=== PATIENT | female | born 1930 | race Caucasian/White ===

== ENCOUNTER → 2017-02-09 | Outpatient (CLI) | payer MEDICARE, BC | LOC: MW.CHPOD 08:00 | PROVIDERS: ATTEND Podiatrist Foot & Ankle Surgery | DX: I73.9 Peripheral vascular disease, unspecified (principal); L90.9 Atrophic disorder of skin, unspecified; M20.5X2 Other deformities of toe(s) (acquired), left foot; L60.3 Nail dystrophy | CPT/HCPCS: 99204 ==

== ENCOUNTER → 2017-03-29 | Outpatient (CLI) | payer MEDICARE, BC | END | disposition home or self-care (01) | LOC: MW.ONC 09:55 | PROVIDERS: ATTEND Internal Medicine Hematology & Oncology | DX: C85.80 Other specified types of non-Hodgkin lymphoma, unspecified site (principal) | CPT/HCPCS: 36415; 80053; 84165; 85025 ==

== ENCOUNTER 2017-11-19 13:03 | Inpatient (IN) | payer MEDICARE, BC ==
[2017-11-19] MEDS ORDERED: Sodium Chloride 0.9% 10 ML Syringe FLUSH PRN (13:26)
[2017-11-19] MEDS ORDERED: Albuterol/Ipratropium 3.0-0.5 MG/3 ML Neb Soln NEB ONE (13:26)
[2017-11-19] MEDS ORDERED: Sodium Chloride 0.9% 2.5 ML Syringe FLUSH PRN (13:26)
--- NOTE | 2017-11-19 13:29 | EDM.PDOC ---
ED HPI GENERAL MEDICAL PROBLEM - General Stated Complaint: AMBULANCE Time Seen by Provider: 11/19/17 13:20 - History of Present Illness INITIAL COMMENTS - FREE TEXT/NARRATIVE: HISTORY AND PHYSICAL: History of present illness: Patient 87-year-old female history of lymphoma who presents with a concern of shortness of breath generalized weakness and slurred speech per daughter she equivocates regarding chest pain and no abdominal pain vomiting or other concerns. Upon arrival her saturations in the high 80s. Review of systems: As per history of present illness and below otherwise all systems reviewed and negative. Past medical history: As per history of present illness and as reviewed below otherwise noncontributory. Surgical history: As per history of present illness and as reviewed below otherwise noncontributory. Social history: No reported history of drug or alcohol abuse. Family history: As per history of present illness and as reviewed below otherwise noncontributory. Physical exam: HEENT: Atraumatic, normocephalic, pupils reactive, negative for conjunctival pallor or scleral icterus, mucous membranes moist, throat clear, neck supple, nontender, trachea midline. Lungs: Coarse breath sounds equal bilaterally, chest nontender. Heart: S1S2, regular, negative for clicks, rubs, or JVD. Abdomen: Soft, nondistended, nontender. Negative for masses or hepatosplenomegaly. Negative for costovertebral tenderness. Pelvis: Stable nontender. Genitourinary: Deferred. Rectal: Deferred. Extremities: Atraumatic, negative for cords or calf pain. Neurovascular unremarkable. Neuro: Awake, alert, follows commands and moves all extremities extremely hard of hearing limited but grossly nonfocal exam Diagnostics: CBC CMP PT/INR troponin UA urine culture sensitivity blood cultures 2 chest x- ray CT brain EKG Therapeutics: IV O2 monitor Impression: #1 dyspnea #2 hypoxemia #3 history of lymphoma #4 history of slurred speech Definitive disposition and diagnosis as appropriate pending reevaluation and review of above. - Related Data Allergies Allergy/AdvReac Type Severity Reaction Status Date / Time cephalexin monohydrate Allergy Hives Verified 11/19/17 14:41 [From Keflex] ciprofloxacin [From Cipro] Allergy Other Verified 11/19/17 14:42 erythromycin base Allergy Hives Verified 11/19/17 14:41 gluten Allergy Stomach Verified 11/19/17 14:41 Ache Penicillins Allergy Hives Verified 11/19/17 14:41 Sulfa (Sulfonamide Allergy Hives Verified 11/19/17 14:41 Antibiotics) contrast Dye Allergy Hives Uncoded 11/19/17 14:41 tape adhesives (USE PAPER Allergy Swelling Uncoded 11/19/17 14:41 TAPE ONLY Home Meds: Home Meds Calcitonin ([place]) [Miacalcin Nasal [place]] 1 inh INH DAILY 12/10/14 [History] Levothyroxine Sodium [Synthroid] 1 tab PO ACBRK 12/10/14 [History] Magnesium Oxide 400 mg PO BID 12/10/14 [History] Multivitamin [Multi Vitamin Daily] 1 tab PO DAILY 12/10/14 [History] Potassium Chloride 40 meq PO DAILY 12/10/14 [History] Triamcinolone Acetonide [Nasacort AQ [place]] 2 spray AYAZ BID 12/10/14 [History] Past Medical History Oncologic (Cancer) History: Reports: Lymphoma, Other (See Below) Other Oncologic History: Blood cancer and some 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 wasn't exactly sure what type of cancer. Social & Family History - Family History Family Medical History: Noncontributory - Tobacco Use Smoking Status *Q: Never Smoker Second Hand Smoke Exposure: No - Caffeine Use Caffeine Use: Reports: None - Alcohol Use Days Per Week of Alcohol Use: 0 Number of Drinks Per Day: 0 Total Drinks Per Week: 0 - Recreational Drug Use Recreational Drug Use: No Drug Use in Last 12 Months: No ED ROS GENERAL - Review of Systems Review Of Systems: ROS reveals no pertinent complaints other than HPI. ED EXAM, GENERAL - Physical Exam Exam: See Below (See dictation) Course - Vital Signs Last Recorded V/S: Last Vital Signs Temp 37.4 C 11/19/17 16:03 Pulse 98 11/19/17 15:31 Resp 12 11/19/17 15:31 BP 77/44 L 11/19/17 15:31 Pulse Ox 98 11/19/17 15:31 - Orders/Labs/Meds Orders: Active Orders 24 hr Category Date Time Status Cardiac Monitoring [RC] . DIRECTED Care 11/19/17 13:23 Active EKG Documentation Completion [RC] STAT Care 11/19/17 13:23 Active Oxygen Therapy, ED [RC] ASDIRECTED Care 11/19/17 13:23 Active Pulse Oximetry [RC] ASDIRECTED Care 11/19/17 13:23 Active RT Aerosol Therapy [RC] ASDIRECTED Care 11/19/17 13:26 Active Chest 1V Frontal [CR] Stat Exams 11/19/17 13:26 Taken Head wo Cont [CT] Stat Exams 11/19/17 13:26 Taken ABG [BLOOD GAS ARTERIAL] [BG] Stat Lab 11/19/17 15:53 Ordered CULTURE BLOOD [BC] Stat Lab 11/19/17 13:37 Received CULTURE BLOOD [BC] Stat Lab 11/19/17 14:02 Received CULTURE URINE [RM] Stat Lab 11/19/17 13:22 Received Levofloxacin/Dextrose 5%-Water [Levaquin in D5W 750 MG/ Med 11/19/17 16:57 Active 150 ML] 750 mg Premix Bag 1 bag IV ONETIME Sodium Chloride 0.9% [Normal Saline] 1,000 ml Med 11/19/17 16:51 Active IV .Bolus Sodium Chloride 0.9% [Normal Saline] 1,000 ml Med 11/19/17 13:30 Active IV STAT Sodium Chloride 0.9% [Saline Flush] Med 11/19/17 13:26 Active 10 ml FLUSH ASDIRECTED PRN Sodium Chloride 0.9% [Saline Flush] Med 11/19/17 13:26 Active 2.5 ml FLUSH ASDIRECTED PRN Blood Culture x2 Reflex Set [OM.PC] Stat Oth 11/19/17 13:25 Ordered Saline Lock Insert [OM.PC] Stat Oth 11/19/17 13:23 Ordered Medication Orders Sodium Chloride (Normal Saline) 1,000 mls @ 125 mls/hr IV STAT [facility] Last Infusion: 11/19/17 14:35 Dose: 999 mls/hr Admin: 11/19/17 13:49 Dose: 125 mls/hr Sodium Chloride (Normal Saline) 1,000 mls @ 999 mls/hr IV .Bolus ONE Stop: 11/19/17 17:51 Levofloxacin/Dextrose 750 mg/ (Premix) 150 mls @ 100 mls/hr IV ONETIME ONE Stop: 11/19/17 18:26 Sodium Chloride (Saline Flush) 10 ml FLUSH ASDIRECTED PRN PRN Reason: Keep Vein Open Last Admin: 11/19/17 13:49 Dose: 10 ml Sodium Chloride (Saline Flush) 2.5 ml FLUSH ASDIRECTED PRN PRN Reason: Keep Vein Open Last Admin: 11/19/17 13:49 Dose: 2.5 ml Labs: Laboratory Tests 11/19/17 11/19/17 11/19/17 Range/Units 13:22 13:24 13:24 WBC 11.60 H (4.0-11.0) K/uL RBC 4.09 L (4.30-5.90) M/uL Hgb 12.5 (12.0-16.0) g/dL Hct 37.4 (36.0-46.0) % MCV 91.4 (80.0-98.0) fL MCH 30.6 (27.0-32.0) pg MCHC 33.4 (31.0-37.0) g/dL RDW Std Deviation 49.9 (28.0-62.0) fl RDW Coeff of [place] 15 (11.0-15.0) % Plt Count 279 (150-400) K/uL MPV 9.20 (7.40-12.00) fL Neut % (Auto) 81.8 H (48.0-80.0) % Lymph % (Auto) 14.5 L (16.0-40.0) % Grand % (Auto) 3.3 (0.0-15.0) % Eos % (Auto) 0.3 (0.0-7.0) % Baso % (Auto) 0.1 (0.0-1.5) % Neut # (Auto) 9.5 H (1.4-5.7) K/uL Lymph # (Auto) 1.7 (0.6-2.4) K/uL Grand # (Auto) 0.4 (0.0-0.8) K/uL Eos # (Auto) 0.0 (0.0-0.7) K/uL Baso # (Auto) 0.0 (0.0-0.1) K/uL Nucleated RBC % 0.0 /100WBC Nucleated RBCs # 0 K/uL INR 1.05 (0.86-1.11) ABG pH (7.35-7.45) ABG pCO2 (35-45) mmHG ABG pO2 (75-100) mmHG ABG HCO3 (22-26) mEq/L ABG Total CO2 ABG Base Excess (-2.0-2.0) Sodium (136-146) mmol/L Potassium (3.5-5.1) mmol/L Chloride (98-110) mmol/L Carbon Dioxide (21-31) mmol/L BUN (6.0-23.0) mg/dL Creatinine (0.6-1.5) mg/dL Est Cr Clr Drug Dosing Estimated GFR (MDRD) ml/min Glucose (60-110) mg/dL Calcium (8.8-10.8) mg/dL Total Bilirubin (0.1-1.5) mg/dL AST (5-40) IU/L ALT (8-54) IU/L Alkaline Phosphatase (40-150) Troponin I (0.0-0.29) NG/ML B-Natriuretic Peptide (<100) PG/ML Total Protein (6.0-8.0) g/dL Albumin (3.4-4.8) g/dL Globulin (2.0-3.5) g/dL Albumin/Globulin Ratio (1.3-2.8) Urine Color YELLOW Urine Appearance CLEAR Urine pH 6.0 (5.0-8.0) Ur Specific [place] 1.025 (1.001-1.035) Urine Protein 30 (NEGATIVE) mg/dL Urine Glucose (UA) NEGATIVE (NEGATIVE) mg/dL Urine Ketones NEGATIVE (NEGATIVE) mg/dL Urine Occult Blood TRACE-INTACT (NEGATIVE) Urine Nitrite NEGATIVE (NEGATIVE) Urine Bilirubin NEGATIVE (NEGATIVE) Urine Urobilinogen 0.2 (<2.0) EU/dL Ur Leukocyte Esterase NEGATIVE (NEGATIVE) Urine RBC 0-1 (0-2/HPF) Urine WBC 2-3 (0-5/HPF) Ur Epithelial Cells OCCASIONAL (NONE-FEW) Urine Bacteria 2+ H (NEGATIVE) Hyaline Casts 2-3 (0-2/LPF) Coarse Granular Casts 4-6 (NEGATIVE) 11/19/17 11/19/17 11/19/17 Range/Units 13:24 13:24 15:25 WBC (4.0-11.0) K/uL RBC (4.30-5.90) M/uL Hgb (12.0-16.0) g/dL Hct (36.0-46.0) % MCV (80.0-98.0) fL MCH (27.0-32.0) pg MCHC (31.0-37.0) g/dL RDW Std Deviation (28.0-62.0) fl RDW Coeff of [place] (11.0-15.0) % Plt Count (150-400) K/uL MPV (7.40-12.00) fL Neut % (Auto) (48.0-80.0) % Lymph % (Auto) (16.0-40.0) % Grand % (Auto) (0.0-15.0) % Eos % (Auto) (0.0-7.0) % Baso % (Auto) (0.0-1.5) % Neut # (Auto) (1.4-5.7) K/uL Lymph # (Auto) (0.6-2.4) K/uL Grand # (Auto) (0.0-0.8) K/uL Eos # (Auto) (0.0-0.7) K/uL Baso # (Auto) (0.0-0.1) K/uL Nucleated RBC % /100WBC Nucleated RBCs # K/uL INR (0.86-1.11) ABG pH 7.465 H (7.35-7.45) ABG pCO2 24 L (35-45) mmHG ABG pO2 65 L (75-100) mmHG ABG HCO3 17 L (22-26) mEq/L ABG Total CO2 15.2 ABG Base Excess -5.2 L (-2.0-2.0) Sodium 132 L (136-146) mmol/L Potassium 4.6 (3.5-5.1) mmol/L Chloride 100 (98-110) mmol/L Carbon Dioxide 16 L (21-31) mmol/L BUN 41 H (6.0-23.0) mg/dL Creatinine 1.7 H (0.6-1.5) mg/dL Est Cr Clr Drug Dosing TNP Estimated GFR (MDRD) 28.4 ml/min Glucose 107 (60-110) mg/dL Calcium 9.1 (8.8-10.8) mg/dL Total Bilirubin 0.7 (0.1-1.5) mg/dL AST 56 H (5-40) IU/L ALT 46 (8-54) IU/L Alkaline Phosphatase 68 (40-150) Troponin I 0.10 (0.0-0.29) NG/ML B-Natriuretic Peptide 424 H (<100) PG/ML Total Protein 8.5 H (6.0-8.0) g/dL Albumin 3.3 L (3.4-4.8) g/dL Globulin 5.2 H (2.0-3.5) g/dL Albumin/Globulin Ratio 0.6 L (1.3-2.8) Urine Color Urine Appearance Urine pH (5.0-8.0) Ur Specific [place] (1.001-1.035) Urine Protein (NEGATIVE) mg/dL Urine Glucose (UA) (NEGATIVE) mg/dL Urine Ketones (NEGATIVE) mg/dL Urine Occult Blood (NEGATIVE) Urine Nitrite (NEGATIVE) Urine Bilirubin (NEGATIVE) Urine Urobilinogen (<2.0) EU/dL Ur Leukocyte Esterase (NEGATIVE) Urine RBC (0-2/HPF) Urine WBC (0-5/HPF) Ur Epithelial Cells (NONE-FEW) Urine Bacteria (NEGATIVE) Hyaline Casts (0-2/LPF) Coarse Granular Casts (NEGATIVE) Meds: Medications Generic Name Dose Route Start Last Admin Trade Name Freq PRN Reason Stop Dose Admin Sodium Chloride 1,000 mls @ 125 mls/hr 11/19/17 13:30 11/19/17 14:35 Normal Saline IV 999 mls/hr STAT APPLE Infusion Sodium Chloride 1,000 mls @ 999 mls/hr 11/19/17 16:51 Normal Saline IV 11/19/17 17:51 .Bolus ONE Levofloxacin/Dextrose 750 mg/ 150 mls @ 100 mls/hr 11/19/17 16:57 Premix IV 11/19/17 18:26 ONETIME ONE Sodium Chloride 10 ml 11/19/17 13:26 11/19/17 13:49 Saline Flush FLUSH 10 ml ASDIRECTED PRN Administration Keep Vein Open Sodium Chloride 2.5 ml 11/19/17 13:26 11/19/17 13:49 Saline Flush FLUSH 2.5 ml ASDIRECTED PRN Administration Keep Vein Open Discontinued Medications Generic Name Dose Route Start Last Admin Trade Name Freq PRN Reason Stop Dose Admin Acetaminophen 1,000 mg 11/19/17 14:14 11/19/17 14:34 Tylenol Extra Strength PO 11/19/17 14:15 Not Given ONETIME ONE Albuterol/Ipratropium 3 ml 11/19/17 13:26 11/19/17 13:33 Duoneb 3.0-0.5 Mg/3 Ml NEB 11/19/17 13:27 3 ml ONETIME ONE Administration Ibuprofen 200 mg 11/19/17 14:21 11/19/17 14:34 Motrin PO 11/19/17 14:22 Not Given ONETIME ONE Ibuprofen 400 mg 11/19/17 14:34 11/19/17 15:03 Motrin PO 11/19/17 14:35 400 mg ONETIME ONE Administration Ibuprofen Confirm 11/19/17 14:33 11/19/17 15:02 Motrin Administered 11/19/17 14:34 Not Given Dose 400 mg .ROUTE .STK-MED ONE Departure - Departure Time of Disposition: 16:58 Disposition: Admitted As Inpatient 65 Condition: Good Clinical Impression: General weakness, UTI (urinary tract infection) - Discharge Information Referrals: PCP,None [Primary Care Provider] - - My Orders Last 24 Hours: My Active Orders 11/19/17 13:22 CULTURE URINE [RM] Stat 11/19/17 13:23 Cardiac Monitoring [RC] . DIRECTED EKG Documentation Completion [RC] STAT Oxygen Therapy, ED [RC] ASDIRECTED Pulse Oximetry [RC] ASDIRECTED Saline Lock Insert [OM.PC] Stat 11/19/17 13:25 Blood Culture x2 Reflex Set [OM.PC] Stat 11/19/17 13:26 RT Aerosol Therapy [RC] ASDIRECTED Chest 1V Frontal [CR] Stat Head wo Cont [CT] Stat Sodium Chloride 0.9% [Saline Flush] 10 ml FLUSH ASDIRECTED PRN Sodium Chloride 0.9% [Saline Flush] 2.5 ml FLUSH ASDIRECTED PRN 11/19/17 13:30 Sodium Chloride 0.9% [Normal Saline] 1,000 ml IV STAT 11/19/17 13:37 CULTURE BLOOD [BC] Stat 11/19/17 14:02 CULTURE BLOOD [BC] Stat 11/19/17 15:53 ABG [BLOOD GAS ARTERIAL] [BG] Stat 11/19/17 16:51 Sodium Chloride 0.9% [Normal Saline] 1,000 ml IV .Bolus 11/19/17 16:57 Levofloxacin/Dextrose 5%-Water [Levaquin in D5W 750 MG/150 ML] 750 mg Premix Bag 1 bag IV ONETIME - Assessment/Plan Last 24 Hours: My Active Orders 11/19/17 13:22 CULTURE URINE [RM] Stat 11/19/17 13:23 Cardiac Monitoring [RC] . DIRECTED EKG Documentation Completion [RC] STAT Oxygen Therapy, ED [RC] ASDIRECTED Pulse Oximetry [RC] ASDIRECTED Saline Lock Insert [OM.PC] Stat 11/19/17 13:25 Blood Culture x2 Reflex Set [OM.PC] Stat 11/19/17 13:26 RT Aerosol Therapy [RC] ASDIRECTED Chest 1V Frontal [CR] Stat Head wo Cont [CT] Stat Sodium Chloride 0.9% [Saline Flush] 10 ml FLUSH ASDIRECTED PRN Sodium Chloride 0.9% [Saline Flush] 2.5 ml FLUSH ASDIRECTED PRN 11/19/17 13:30 Sodium Chloride 0.9% [Normal Saline] 1,000 ml IV STAT 11/19/17 13:37 CULTURE BLOOD [BC] Stat 11/19/17 14:02 CULTURE BLOOD [BC] Stat 11/19/17 15:53 ABG [BLOOD GAS ARTERIAL] [BG] Stat 11/19/17 16:51 Sodium Chloride 0.9% [Normal Saline] 1,000 ml IV .Bolus 11/19/17 16:57 Levofloxacin/Dextrose 5%-Water [Levaquin in D5W 750 MG/150 ML] 750 mg Premix Bag 1 bag IV ONETIME
[2017-11-19] MEDS ORDERED: Sodium Chloride 0.9% 1,000 ML IV SCH (13:30)
[2017-11-19 13:55] LABS: CHLORIDE,CL 100 mmol/L (98-110); SODIUM,NA 132 mmol/L (136-146)
[2017-11-19] MEDS ORDERED: Acetaminophen 500 MG Tab PO ONE (14:14)
[2017-11-19] MEDS ORDERED: Ibuprofen 200 MG Tab PO ONE (14:21)
[2017-11-19] MEDS ORDERED: Ibuprofen 400 MG Tab ONE (14:33)
[2017-11-19] MEDS ORDERED: Ibuprofen 400 MG Tab PO ONE (14:34)
[2017-11-19] MEDS ORDERED: Sodium Chloride 0.9% 1,000 ML IV ONE (16:51)
[2017-11-19] MEDS ORDERED: Levofloxacin/Dextrose 5%-Water 750 MG in Premix Bag 1 BAG IV ONE (16:57)
[2017-11-19] MEDS ORDERED: Albuterol/Ipratropium 3.0-0.5 MG/3 ML Neb Soln NEB PRN (21:25)
[2017-11-19] MEDS ORDERED: Ondansetron 4 MG/2 ML SDV IVPUSH PRN (21:25)
--- NOTE | 2017-11-19 21:32 | PCM.HP ---
H&P History of Present Illness - General Admit Problem/Dx: Admission Diagnosis/Problem Admission Diagnosis/Problem UTI, Urinary tract infectious disease - History of Present Illness Initial Comments - Free Text/Narative: 87 yo female who presents with shortness of breath, productive cough, and generalized weakness. Patient reports have cold with post nasal drip several days prior to shortness of breath. She denies any chest pain. She was noted to have a fever of 39.1. CXR showed no focal consolidation and UA had +2 bacteria. - Related Data Allergies/Adverse Reactions: Allergies Allergy/AdvReac Type Severity Reaction Status Date / Time cephalexin monohydrate Allergy Hives Verified 11/19/17 14:41 [From Keflex] ciprofloxacin [From Cipro] Allergy Other Verified 11/19/17 14:42 erythromycin base Allergy Hives Verified 11/19/17 14:41 gluten Allergy Stomach Verified 11/19/17 14:41 Ache Penicillins Allergy Hives Verified 11/19/17 14:41 Sulfa (Sulfonamide Allergy Hives Verified 11/19/17 14:41 Antibiotics) contrast Dye Allergy Hives Uncoded 11/19/17 14:41 tape adhesives (USE PAPER Allergy Swelling Uncoded 11/19/17 14:41 TAPE ONLY Home Medications: Home Meds Calcitonin ([place]) [Miacalcin Nasal [place]] 1 inh INH DAILY 12/10/14 [History] Levothyroxine Sodium [Synthroid] 1 tab PO ACBRK 12/10/14 [History] Magnesium Oxide 400 mg PO BID 12/10/14 [History] Multivitamin [Multi Vitamin Daily] 1 tab PO DAILY 12/10/14 [History] Potassium Chloride 40 meq PO DAILY 12/10/14 [History] Fluticasone Propionate [Flovent] 50 mcg NASBOTH DAILY PRN 11/19/17 [History] Lutein/Minerals/Vit A,C & E [Ocuvite] PO DAILY 11/19/17 [History] Past Medical History HEENT History: Reports: Hard of Hearing, Impaired Vision, Other (See Below) Other HEENT History: blurry vision and pain to left eye Cardiovascular History: Reports: Arrhythmia, High Cholesterol Respiratory History: Reports: Other (See Below) Other Respiratory History: Oxygen use at NOC at home Gastrointestinal History: Reports: Celiac Disease Genitourinary History: Reports: Urinary Incontinence, UTI, Recurrent Musculoskeletal History: Reports: Osteoporosis, RA Neurological History: Reports: None Psychiatric History: Reports: Anxiety, Depression Endocrine/Metabolic History: Reports: Hyperthyroidism, Osteoporosis Hematologic History: Reports: Anemia, Blood Transfusion(s) Oncologic (Cancer) History: Reports: Lymphoma, Other (See Below) Other Oncologic History: [place]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 feeding tube placement, no longer in place Female Surgical History: Reports: Hysterectomy Neurological Surgical History: Reports: None Musculoskeletal Surgical History: Reports: None Social & Family History - Family History Family Medical History: Noncontributory - Tobacco Use Smoking Status *Q: Never Smoker Second Hand Smoke Exposure: No - Caffeine Use Caffeine Use: Reports: Coffee Other Caffeine Use: 1 cup per day - Alcohol Use Days Per Week of Alcohol Use: 0 Number of Drinks Per Day: 0 Total Drinks Per Week: 0 - Recreational Drug Use Recreational Drug Use: No Drug Use in Last 12 Months: No H&P Review of Systems - Review of Systems: Review Of Systems: ROS reveals no pertinent complaints other than HPI. Exam - Exam Exam: See Below - Vital Signs Vital Signs: Last Vital Signs Temp 36.6 C 11/19/17 17:45 Pulse 80 11/19/17 17:45 Resp 22 H 11/19/17 17:45 BP 88/50 L 11/19/17 17:45 Pulse Ox 96 11/19/17 17:45 Weight: 39.5 kg - Exam General: Alert, Oriented HEENT: Mucosa Moist & [place] Neck: No: JVD Lungs: Normal Respiratory Effort, Decreased Breath Sounds Cardiovascular: Regular Rate, Regular Rhythm GI/Abdominal Exam: Soft, Non-Tender, No Distention Extremities: Non-Tender, No Pedal Edema Skin: Warm, Dry, Intact - Patient Data Result Diagrams: 11/20/17 06:15 11/20/17 06:15 *Q Meaningful Use (ADM) - VTE *Q VTE Criteria *Q: - Stroke *Q Stroke Criteria *Q: - AMI *Q AMI Criteria *Q: Problem List Initiated/Reviewed/Updated: Yes Orders Last 24hrs: Active Orders 24 hr Category Date Time Status Antiembolic Devices [RC] PER UNIT ROUTINE Care 11/19/17 21:27 Ordered Oxygen Therapy [RC] PRN Care 11/19/17 21:25 Ordered RT Aerosol Therapy [RC] ASDIRECTED Care 11/19/17 21:27 Ordered VTE/DVT Education [RC] PER UNIT ROUTINE Care 11/19/17 21:25 Ordered Vital Signs [RC] Q4H Care 11/19/17 21:25 Ordered Gluten Free Diet [DIET] Diet 11/20/17 Breakfast Active BASIC METABOLIC PANEL,BMP [CHEM] AM Lab 11/20/17 05:11 Ordered BASIC METABOLIC PANEL,BMP [CHEM] AM Lab 11/21/17 05:11 Ordered CBC W/O DIFF,HEMOGRAM [HEME] AM Lab 11/20/17 05:11 Ordered CBC W/O DIFF,HEMOGRAM [HEME] AM Lab 11/21/17 05:11 Ordered CULTURE SPUTUM + SMEAR [RM] Stat Lab 11/19/17 21:25 Uncollected Albuterol/Ipratropium [DuoNeb 3.0-0.5 MG/3 ML] Med 11/19/17 21:25 Ordered 3 ml NEB Q4HRRT PRN Heparin Sodium Med 11/20/17 09:00 Ordered 5,000 units SUBCUT Q12HR Levofloxacin/Dextrose 5%-Water [Levaquin in D5W 750 MG/ Med 11/20/17 17:00 Ordered 150 ML] 750 mg Premix Bag 1 bag IV Q24H Ondansetron [Zofran] Med 11/19/17 21:25 Ordered 4 mg IVPUSH Q4H PRN Sodium Chloride 0.9% [Normal Saline] 1,000 ml Med 11/19/17 18:30 Active IV ASDIRECTED Sequential Compression Device [OM.PC] Per Unit Routine Oth 11/19/17 21:26 Ordered Resuscitation Status Routine Resus Stat 11/19/17 21:25 Ordered Medication Orders Sodium Chloride (Normal Saline) 1,000 mls @ 125 mls/hr IV STAT [facility] Last Infusion: 11/19/17 14:35 Dose: 999 mls/hr Admin: 11/19/17 13:49 Dose: 125 mls/hr Sodium Chloride (Normal Saline) 1,000 mls @ 75 mls/hr IV ASDIRECTED APPLE Levofloxacin/Dextrose 750 mg/ (Premix) 150 mls @ 100 mls/hr IV Q24H [facility] Sodium Chloride (Saline Flush) 10 ml FLUSH ASDIRECTED PRN PRN Reason: Keep Vein Open Last Admin: 11/19/17 13:49 Dose: 10 ml Sodium Chloride (Saline Flush) 2.5 ml FLUSH ASDIRECTED PRN PRN Reason: Keep Vein Open Last Admin: 11/19/17 13:49 Dose: 2.5 ml Assessment/Plan Comment:: 87 yo female admitted for UTI and possible pneumonia. We will treat with levaquin. Cultures are pending.
[2017-11-19] MEDS: Sodium Chloride 0.9% 1,000 ML IV SCH (21:57)
[2017-11-19] MEDS ORDERED: Sodium Chloride 0.9% 500 ML IV SCH (22:15)
[2017-11-20] MEDS ORDERED: Meropenem 1 GM in Sodium Chloride 0.9% 100 ML IV SCH (12:30)
[2017-11-20] MEDS: Sodium Chloride 0.9% 1,000 ML IV SCH (12:35)
[2017-11-20] MEDS: Meropenem 500 MG in Sodium Chloride 0.9% 50 ML IV SCH (14:46)
[2017-11-20] MEDS: Heparin Sodium 5,000 Units/ML Vial SUBCUT SCH ×2 (14:52→22:38)
--- NOTE | 2017-11-20 15:25 | PCM.PN ---
- Review of Systems Systems Review Comment:: feeling better, reports generalized weakness, cough improved - Patient Data Vitals - Most Recent: Last Vital Signs Temp 36.5 C 11/20/17 11:37 Pulse 71 11/20/17 11:37 Resp 18 11/20/17 11:37 BP 91/52 L 11/20/17 11:37 Pulse Ox 97 11/20/17 11:37 Weight - Most Recent: 39.5 kg I&O - Last 24 Hours: Intake & Output 11/20/17 11/20/17 11/20/17 06:59 14:59 22:59 Intake Total 100 Output Total 335 Balance -235 Lab Results Last 24 Hours: Laboratory Results - last 24 hr 11/20/17 11/20/17 Range/Units 06:15 06:15 WBC 20.17 H (4.0-11.0) K/uL RBC 3.18 L (4.30-5.90) M/uL Hgb 9.5 L (12.0-16.0) g/dL Hct 28.6 L (36.0-46.0) % MCV 89.9 (80.0-98.0) fL MCH 29.9 (27.0-32.0) pg MCHC 33.2 (31.0-37.0) g/dL RDW Std Deviation 48.5 (28.0-62.0) fl RDW Coeff of Carina 15 (11.0-15.0) % Plt Count 178 (150-400) K/uL MPV 8.90 (7.40-12.00) fL Nucleated RBC % 0.0 /100WBC Nucleated RBCs # 0 K/uL Sodium 137 (136-146) mmol/L Potassium 3.5 (3.5-5.1) mmol/L Chloride 114 H (98-110) mmol/L Carbon Dioxide 13 L (21-31) mmol/L BUN 37 H (6.0-23.0) mg/dL Creatinine 1.4 (0.6-1.5) mg/dL Est Cr Clr Drug Dosing 17.32 mL/min Estimated GFR (MDRD) 35.5 ml/min Glucose 67 (60-110) mg/dL Calcium 7.8 L (8.8-10.8) mg/dL Med Orders - Current: Current Medications Albuterol/Ipratropium (Duoneb 3.0-0.5 Mg/3 Ml) 3 ml NEB Q4HRRT PRN PRN Reason: Shortness Of Breath/wheezing Heparin Sodium (Porcine) (Heparin Sodium) 5,000 units SUBCUT Q12HR [facility] Last Admin: 11/20/17 14:52 Dose: 5,000 units Sodium Chloride (Normal Saline) 1,000 mls @ 125 mls/hr IV STAT [facility] Last Infusion: 11/19/17 14:35 Dose: 999 mls/hr Sodium Chloride (Normal Saline) 1,000 mls @ 75 mls/hr IV ASDIRECTED [facility] Last Admin: 11/20/17 12:35 Dose: 75 mls/hr Levofloxacin/Dextrose 250 mg/ (Premix) 50 mls @ 100 mls/hr IV Q48H [facility] Sodium Chloride (Normal Saline) 500 mls @ 500 mls/hr IV .BOLUS [facility] Last Admin: 11/19/17 22:18 Dose: 500 mls/hr Meropenem 500 mg/ Sodium (Chloride) 50 mls @ 100 mls/hr IV Q12H [facility] Last Admin: 11/20/17 14:46 Dose: 100 mls/hr Ondansetron HCl (Zofran) 4 mg IVPUSH Q4H PRN PRN Reason: Nausea Sodium Chloride (Saline Flush) 10 ml FLUSH ASDIRECTED PRN PRN Reason: Keep Vein Open Last Admin: 11/19/17 13:49 Dose: 10 ml Sodium Chloride (Saline Flush) 2.5 ml FLUSH ASDIRECTED PRN PRN Reason: Keep Vein Open Last Admin: 11/19/17 13:49 Dose: 2.5 ml Vancomycin HCl (Pharmacy To Dose - Vancomycin) 1 dose .XX ASDIRECTED [facility] Discontinued Medications Acetaminophen (Tylenol Extra Strength) 1,000 mg PO ONETIME ONE Stop: 11/19/17 14:15 Last Admin: 11/19/17 14:34 Dose: Not Given Albuterol/Ipratropium (Duoneb 3.0-0.5 Mg/3 Ml) 3 ml NEB ONETIME ONE Stop: 11/19/17 13:27 Last Admin: 11/19/17 13:33 Dose: 3 ml Sodium Chloride (Normal Saline) 1,000 mls @ 999 mls/hr IV .Bolus ONE Stop: 11/19/17 17:51 Last Admin: 11/19/17 17:13 Dose: 999 mls/hr Levofloxacin/Dextrose 750 mg/ (Premix) 150 mls @ 100 mls/hr IV ONETIME ONE Stop: 11/19/17 18:26 Last Admin: 11/19/17 17:13 Dose: 100 mls/hr Meropenem 1 gm/ Sodium (Chloride) 100 mls @ 200 mls/hr IV Q8H [facility] Ibuprofen (Motrin) 200 mg PO ONETIME ONE Stop: 11/19/17 14:22 Last Admin: 11/19/17 14:34 Dose: Not Given Ibuprofen (Motrin) 400 mg PO ONETIME ONE Stop: 11/19/17 14:35 Last Admin: 11/19/17 15:03 Dose: 400 mg Ibuprofen (Motrin) Confirm Administered Dose 400 mg .ROUTE .STK-MED ONE Stop: 11/19/17 14:34 Last Admin: 11/19/17 15:02 Dose: Not Given - Exam General: Alert, Cooperative, No Acute Distress Lungs: Clear to Auscultation, Normal Respiratory Effort Cardiovascular: Regular Rate, Regular Rhythm GI/Abdominal Exam: Soft, Non-Tender Extremities: No Pedal Edema Skin: Warm, Dry, Intact - Problem List Review Problem List Initiated/Reviewed/Updated: Yes - My Orders Last 24 Hours: My Active Orders 11/20/17 09:00 Heparin Sodium 5,000 units SUBCUT Q12HR 11/20/17 11:55 Abdomen Pelvis wo Cont [CT] Routine Chest wo Cont [CT] Routine 11/20/17 14:15 Meropenem 500 mg Sodium Chloride 0.9% [Normal Saline] 50 ml IV Q12H 11/20/17 14:31 Hemoccult [OCCULT BLOOD DIAGNOSTIC] [OP] Routine 11/20/17 15:30 Vancomycin Pharmacy to Dose [Pharmacy to Dose - Vancomycin] 1 dose .XX ASDIRECTED 11/20/17 19:00 CULTURE BLOOD [BC] Routine 11/20/17 Breakfast Gluten Free Diet [DIET] 11/21/17 05:11 BASIC METABOLIC PANEL,BMP [CHEM] AM CBC W/O DIFF,HEMOGRAM [HEME] AM 11/21/17 17:00 Levofloxacin/Dextrose 5%-Water [Levaquin in D5W 250 MG/50 ML] 250 mg Premix Bag 1 bag IV Q48H 11/19/17 18:30 Sodium Chloride 0.9% [Normal Saline] 1,000 ml IV ASDIRECTED 11/19/17 21:25 Oxygen Therapy [RC] PRN VTE/DVT Education [RC] PER UNIT ROUTINE Vital Signs [RC] Q4H CULTURE SPUTUM + SMEAR [RM] Stat Albuterol/Ipratropium [DuoNeb 3.0-0.5 MG/3 ML] 3 ml NEB Q4HRRT PRN Ondansetron [Zofran] 4 mg IVPUSH Q4H PRN Resuscitation Status Routine 11/19/17 21:26 Sequential Compression Device [OM.PC] Per Unit Routine 11/19/17 21:27 Antiembolic Devices [RC] PER UNIT ROUTINE RT Aerosol Therapy [RC] ASDIRECTED 11/19/17 22:15 Sodium Chloride 0.9% [Normal Saline] 500 ml IV .BOLUS - Plan Plan:: 87 yo female admitted for UTI and possible pneumonia. Blood cultures reported growing gram negative bacilli and then gram positive cocci. WBC up to 20,170. Have expanding antibiotics to vancomycin, meropenum, and Levaquin. Creatinine has improved to 1.4. Will CT c/a/p to evaluate for source of infection.
[2017-11-20] MEDS: Carboxymethylcellulose Sodium 0.5% Ophth Soln 0.4 ML UD Box of 30 EYEBOTH SCH (22:38)
[2017-11-20] MEDS: Carboxymethylcellulose/Hypromellose Ophth Gel 15 ML Bottle EYELF SCH (22:38)
[2017-11-21] MEDS: Meropenem 500 MG in Sodium Chloride 0.9% 50 ML IV SCH (01:19)
[2017-11-21] MEDS: Carboxymethylcellulose Sodium 0.5% Ophth Soln 0.4 ML UD Box of 30 EYEBOTH SCH ×3 (05:48→21:37)
[2017-11-21] MEDS: Sodium Chloride 0.9% 1,000 ML IV SCH (05:48)
[2017-11-21] MEDS: Levothyroxine 75 MCG Tab PO SCH (06:41)
[2017-11-21] MEDS: Fluticasone Propionate Nasal Spray 16 GM Bottle NASBOTH SCH (08:58)
[2017-11-21] MEDS: Heparin Sodium 5,000 Units/ML Vial SUBCUT SCH ×2 (08:59→21:39)
[2017-11-21] MEDS ORDERED: Potassium Chloride 20 MEQ Tab.ER PO ONE (09:09)
--- NOTE | 2017-11-21 09:15 | PCM.PN ---
Addendum entered and electronically signed by Sweta Terrazas NP 11/21/17 12:30 : After discussion with Dr. Hameed, will de-escalate antibiotics, stop Meropenem and Vancomycin today. Keep Levaquin IV. Original Note: - General Info Date of Service: 11/21/17 Admission Dx/Problem (Free Text): Admission Diagnosis/Problem Admission Diagnosis/Problem UTI, Urinary tract infectious disease Subjective Update: Feeling a little better today, slept better last night. Cough is more loose today, but is unable to get anything up. Denies chest pain. Scant SOB. No palpitations. Continues to have malaise but this is improving. Functional Status: Reports: Pain Controlled, Tolerating Diet, Ambulating, Urinating - Review of Systems General: Reports: Weakness, Malaise HEENT: Reports: No Symptoms. Denies: Headaches, Sore Throat, Visual Changes Pulmonary: Reports: Cough. Denies: Shortness of Breath, Pleuritic Chest Pain, Sputum, Hemoptysis, Wheezing Cardiovascular: Reports: No Symptoms. Denies: Chest Pain, Palpitations, Edema, Lightheadedness Gastrointestinal: Reports: No Symptoms, Flatus. Denies: Abdominal Pain, Diarrhea, Nausea, Vomiting Genitourinary: Reports: No Symptoms. Denies: Dysuria, Frequency, Burning, Pain Musculoskeletal: Reports: No Symptoms Neurological: Reports: No Symptoms. Denies: Confusion Psychiatric: Reports: No Symptoms. Denies: Confusion - Patient Data Vitals - Most Recent: Last Vital Signs Temp 97.9 F 11/21/17 04:00 Pulse 73 11/21/17 04:00 Resp 16 11/21/17 04:00 BP 102/57 L 11/21/17 04:00 Pulse Ox 95 11/21/17 04:00 Weight - Most Recent: 39.5 kg I&O - Last 24 Hours: Intake & Output 11/20/17 11/21/17 11/21/17 22:59 06:59 14:59 Intake Total 330 1094 Output Total 520 Balance -190 1094 Lab Results Last 24 Hours: Laboratory Results - last 24 hr 11/21/17 11/21/17 Range/Units 05:23 05:23 WBC 13.23 H (4.0-11.0) K/uL RBC 3.05 L (4.30-5.90) M/uL Hgb 9.2 L (12.0-16.0) g/dL Hct 27.5 L (36.0-46.0) % MCV 90.2 (80.0-98.0) fL MCH 30.2 (27.0-32.0) pg MCHC 33.5 (31.0-37.0) g/dL RDW Std Deviation 49.5 (28.0-62.0) fl RDW Coeff of Carina 15 (11.0-15.0) % Plt Count 172 (150-400) K/uL MPV 8.80 (7.40-12.00) fL Nucleated RBC % 0.0 /100WBC Nucleated RBCs # 0 K/uL Sodium 140 (136-146) mmol/L Potassium 3.3 L (3.5-5.1) mmol/L Chloride 117 H (98-110) mmol/L Carbon Dioxide 14 L (21-31) mmol/L BUN 35 H (6.0-23.0) mg/dL Creatinine 1.4 (0.6-1.5) mg/dL Est Cr Clr Drug Dosing 17.32 mL/min Estimated GFR (MDRD) 35.5 ml/min Glucose 70 (60-110) mg/dL Calcium 8.0 L (8.8-10.8) mg/dL Med Orders - Current: Current Medications Albuterol/Ipratropium (Duoneb 3.0-0.5 Mg/3 Ml) 3 ml NEB Q4HRRT PRN PRN Reason: Shortness Of Breath/wheezing Artificial Tears (Refresh Plus 0.5%) 0 each EYEBOTH TID [facility] Last Admin: 11/21/17 05:48 Dose: 1 drop Carboxymethylcellu Sod/Hypromellose (Genteal Moderate To Severe Ophth Gel) 0 ml EYELF BEDTIME [facility] Last Admin: 11/20/17 22:38 Dose: 1 drop Fluticasone Propionate (Flonase) 0 gm NASBOTH DAILY [facility] Last Admin: 11/21/17 08:58 Dose: 1 spray Heparin Sodium (Porcine) (Heparin Sodium) 5,000 units SUBCUT Q12HR [facility] Last Admin: 11/21/17 08:59 Dose: 5,000 units Sodium Chloride (Normal Saline) 1,000 mls @ 75 mls/hr IV ASDIRECTED [facility] Last Admin: 11/21/17 05:48 Dose: 75 mls/hr Levofloxacin/Dextrose 250 mg/ (Premix) 50 mls @ 100 mls/hr IV Q48H [facility] Meropenem 500 mg/ Sodium (Chloride) 50 mls @ 100 mls/hr IV Q12H [facility] Last Admin: 11/21/17 01:19 Dose: 100 mls/hr Vancomycin HCl 500 mg/ Sodium (Chloride) 100 mls @ 100 mls/hr IV Q24H [facility] Last Admin: 11/20/17 18:27 Dose: 100 mls/hr Levothyroxine Sodium (Levothyroxine) 37.5 mcg PO DAILY@0700 [facility] Last Admin: 11/21/17 06:41 Dose: 37.5 mcg Naproxen (Naproxen Sodium) 110 mg PO BEDTIME PRN PRN Reason: Pain Last Admin: 11/20/17 22:54 Dose: 110 mg Ondansetron HCl (Zofran) 4 mg IVPUSH Q4H PRN PRN Reason: Nausea Dulera Oral Inh 100/ (5 Own Med) 0 each INH DAILY@1200 [facility] Potassium Chloride (Klor-Con M20) 40 meq PO ONETIME ONE Stop: 11/21/17 09:10 Sodium Chloride (Saline Flush) 10 ml FLUSH ASDIRECTED PRN PRN Reason: Keep Vein Open Last Admin: 11/19/17 13:49 Dose: 10 ml Sodium Chloride (Saline Flush) 2.5 ml FLUSH ASDIRECTED PRN PRN Reason: Keep Vein Open Last Admin: 11/19/17 13:49 Dose: 2.5 ml Vancomycin HCl (Pharmacy To Dose - Vancomycin) 1 dose .XX ASDIRECTED [facility] Discontinued Medications Acetaminophen (Tylenol Extra Strength) 1,000 mg PO ONETIME ONE Stop: 11/19/17 14:15 Last Admin: 11/19/17 14:34 Dose: Not Given Albuterol/Ipratropium (Duoneb 3.0-0.5 Mg/3 Ml) 3 ml NEB ONETIME ONE Stop: 11/19/17 13:27 Last Admin: 11/19/17 13:33 Dose: 3 ml Sodium Chloride (Normal Saline) 1,000 mls @ 125 mls/hr IV STAT [facility] Last Infusion: 11/19/17 14:35 Dose: 999 mls/hr Sodium Chloride (Normal Saline) 1,000 mls @ 999 mls/hr IV .Bolus ONE Stop: 11/19/17 17:51 Last Admin: 11/19/17 17:13 Dose: 999 mls/hr Levofloxacin/Dextrose 750 mg/ (Premix) 150 mls @ 100 mls/hr IV ONETIME ONE Stop: 11/19/17 18:26 Last Admin: 11/19/17 17:13 Dose: 100 mls/hr Sodium Chloride (Normal Saline) 500 mls @ 500 mls/hr IV .BOLUS [facility] Last Admin: 11/19/17 22:18 Dose: 500 mls/hr Meropenem 1 gm/ Sodium (Chloride) 100 mls @ 200 mls/hr IV Q8H [facility] Last Admin: 11/20/17 23:44 Dose: Not Given Ibuprofen (Motrin) 200 mg PO ONETIME ONE Stop: 11/19/17 14:22 Last Admin: 11/19/17 14:34 Dose: Not Given Ibuprofen (Motrin) 400 mg PO ONETIME ONE Stop: 11/19/17 14:35 Last Admin: 11/19/17 15:03 Dose: 400 mg Ibuprofen (Motrin) Confirm Administered Dose 400 mg .ROUTE .STK-MED ONE Stop: 11/19/17 14:34 Last Admin: 11/19/17 15:02 Dose: Not Given - Exam Quality Assessment: Supplemental Oxygen, DVT Prophylaxis General: Alert, Oriented, Cooperative, No Acute Distress HEENT: Pupils Equal, Mucous Membr. Moist/Silt Neck: Supple Lungs: Normal Respiratory Effort, Crackles (fine crackles to R lung base). No: Rhonchi, Wheezing Cardiovascular: Regular Rate, Regular Rhythm, No Murmurs GI/Abdominal Exam: Normal Bowel Sounds, Soft, Non-Tender, No Organomegaly, No Distention, No Abnormal Bruit, No Mass, Pelvis Stable Back Exam: Normal Inspection, Full Range of Motion Extremities: Normal Inspection, Normal Range of Motion, Non-Tender, No Pedal Edema, Normal Capillary Refill Neurological: No New Focal Deficit Psy/Mental Status: Alert, Normal Affect, Normal Mood - Problem List & Annotations (1) Community acquired bacterial pneumonia SNOMED Code(s): 405971394 Code(s): J15.9 - UNSPECIFIED BACTERIAL PNEUMONIA Status: Acute Current Visit: Yes (2) UTI (urinary tract infection) SNOMED Code(s): 88480813 Code(s): N39.0 - URINARY TRACT INFECTION, SITE NOT SPECIFIED Status: Acute Current Visit: Yes (3) Positive blood culture SNOMED Code(s): 960497632 Code(s): R78.81 - BACTEREMIA Status: Acute Current Visit: Yes (4) General weakness SNOMED Code(s): 04256604 Code(s): R53.1 - WEAKNESS Status: Acute Current Visit: Yes (5) INDIA (acute kidney injury) SNOMED Code(s): 38289246 Code(s): N17.9 - ACUTE KIDNEY FAILURE, UNSPECIFIED Status: Acute Current Visit: Yes (6) Hx of lymphoma SNOMED Code(s): 363226176 Code(s): Z85.72 - PERSONAL HISTORY OF NON-HODGKIN LYMPHOMAS Status: Chronic Current Visit: Yes (7) History of recurrent UTIs SNOMED Code(s): 326203025 Code(s): Z87.440 - PERSONAL HISTORY OF URINARY (TRACT) INFECTIONS Status: Chronic Current Visit: Yes (8) Hx of rheumatoid arthritis SNOMED Code(s): 110481683 Code(s): Z87.39 - PERSONAL HISTORY OF DISEASES OF THE MS SYS AND CONN TISS Status: Chronic Current Visit: Yes (9) Celiac disease SNOMED Code(s): 903019401 Code(s): K90.0 - CELIAC DISEASE Status: Chronic Current Visit: Yes - Problem List Review Problem List Initiated/Reviewed/Updated: Yes - My Orders Last 24 Hours: My Active Orders 11/21/17 09:09 Potassium Chloride [Klor-Con M20] 40 meq PO ONETIME ONE - Plan Plan:: 87 yo female admitted for UTI and possible pneumonia. 1. Pneumonia: Improving. Chest CT reveals R LLL pneumonia, "questionable aspiration due to retained secretions in origin of R lower lobe bronchus" per radiologist. Alos reveals, small bilateral pleural effusions. Antibiotic coverage expanded due to worsening leukocytosis and positive blood cultures. Today culture results corrected, no growth noted in anaerobic bottles. Aerobic bottles returned this morning with Strep pneumoniae. Leukocytosis improved to 13 ,230. Continue Meropenem, Levaquin, and Vancomycin for now, may consider de- escalating tomorrow. Does report dysphagia since having radiation and chemotherapy, throat feels very dry most days and makes it difficult to swallow. Will order ST evaluation. 2. UTI: Improving. UC returned with Mixed stan >100,000. Continue antibiotics as above. Urinating well. 3. INDIA: Improving, BUN 35 and Cr 1.4 today. Baseline appears 1.2-1.6. Will monitor. 4. Generalized weakness: Likely secondary to acute illness, but will order PT to evaluate and treat to keep strength. Encourage OOB to chair for all meals and ambulate with nursing. VTE prophylaxis: Heparin Dispo: 2-3 days pending improvement
[2017-11-21] MEDS ORDERED: Potassium Chloride 10% 20 MEQ/15 ML Soln 30 ML UD Cup PO ONE (09:41)
[2017-11-21] MEDS ORDERED: Magnesium Sulfate/Water 4 GM in Premix Bag 1 BAG IV ONE (12:21)
[2017-11-21] MEDS: DULERA INH SCH (12:53)
[2017-11-21] MEDS: Levofloxacin/Dextrose 5%-Water 250 MG in Premix Bag 1 BAG IV SCH (16:34)
--- NOTE | 2017-11-21 19:43 | CT ---
EXAM DATE: 11/19/17 PATIENT'S AGE: 87 Patient: LANDON KAUR Facility: [place], [place] Site . Site : 1930 Study: CT Head [id number] 3:18:31 PM Ordering Physician: Sterling Lopez Final Report: Pain. Technique: Noncontrast head CT comparison head CT 11/02/2016. Findings: Axial noncontrast images through the brain parenchyma demonstrate no acute intracranial hemorrhage or mass. No midline shift. There are periventricular hypo lucencies with generalized parenchymal volume loss likely reflecting chronic small vessel ischemic change. No abnormal extra-axial air or fluid collections. No midline shift. There is moderate mucosal thickening in the maxillary sinuses. Mucosal thickening in the ethmoid sinuses. The visualized paranasal sinuses, mastoid air cells skull scalp otherwise appears unremarkable. Impression: 1. No acute intracranial hemorrhage or mass. 2. Generalized parenchymal volume loss with periventricular hypo lucencies likely reflecting chronic small vessel ischemic change . 3. Ethmoid and maxillary sinus disease. Please note that all CT scans at this facility use dose modulation, iterative reconstruction, and/or weight-based dosing when appropriate to reduce radiation dose to as low as reasonably achievable. Dictated by Alia Barriga MD @ Nov 19 2017 3:34PM (Electronic Signature) Report Signed by Proxy. KSENIA
--- NOTE | 2017-11-21 19:44 | CR ---
EXAM DATE: 11/19/17 PATIENT'S AGE: 87 Patient: LANDON KAUR Facility: [place], [place] Site . Site : 1930 Study: XRay Chest [id number] 3:32:27 PM Ordering Physician: Sterling Lopez Final Report: CHEST 1 VIEW AP INDICATION: Chest pain. Cough. Shortness of breath. COMPARISON: December 11, 2014. IMPRESSION: Stable heart size and vascular pattern. Lungs are clear of new focal opacities. No pneumothorax or pleural abnormality. Interstitial markings are mildly increased in overall prominence. No dense consolidation. Stable heart size. There is a fragment of a previous retained central venous catheter which is in stable position with the distal aspect in the mid superior vena cava and catheter in the innominate vein. No pleural effusion or pneumothorax. Dictated by Florentino Moran MD @ Nov 19 2017 3:39PM (Electronic Signature) Report Signed by Proxy. KSENIA
--- NOTE | 2017-11-21 20:32 | CT ---
EXAM DATE: 11/19/17 PATIENT'S AGE: 87 Patient: LANDON KAUR Facility: [place], [place] Site . Site : 1930 Study: CT Abdomen/Pelvis [id number] 2:34:13 PM Ordering Physician: Zari Pack Final Report: Indication: Bacteremia. Comparison: None available. Technique: CT chest, abdomen and pelvis without IV or oral contrast. Findings: Chest: Visualized thyroid is normal. Moderate atherosclerotic calcification of the non aneurysmal aorta. Multiple reactive appearing mediastinal subcentimeter lymph nodes. Probable retained secretions focally occludes the right lower lobe bronchus just after the takeoff from the bronchus intermedius. Moderately prominent airspace opacity with air bronchograms in the dependent right lower lobe and peribronchial right lower lobe. Small right pleural effusion is small and dependent. Some perihilar peribronchial opacity in the right middle lobe. Small highly likely benign 2-3 mm nodule lateral segment right upper lobe. No significant airspace opacity on the left. Pulmonary vascularity in the periphery is within normal limits for age. Mild senescent interstitial prominence at the periphery of both lungs. Biapical pleural scarring. No significant bone lesion or fracture. Wires from a previous left-sided cardiac pacing device seen in the left subclavian to the mid superior vena cava. Calcification mitral valve. Some calcification aortic valve. Heart size is normal. No pericardial effusion. Tiny left pleural effusion at the costophrenic angle. Abdomen and pelvis: Cholecystectomy clips. Small splenule inferior hilum. Benign cyst left kidney. Some mild dystrophic amorphous calcification in both kidneys is in the periphery, may be within the capsule. Small saccular aneurysm of the aorta extends inferior and to the right mid infrarenal aorta. In greatest transverse diameter this measures about 18 x 12 mm (image 57 series 206 ). The overall caliber of the aorta itself is not significantly increased. Diffuse atherosclerosis and ectasia. No pathologic retroperitoneal or mesenteric adenopathy. Some formed stool through the redundant colon. Small bowel appears unremarkable. No air or fluid in the peritoneum. Small diverticula of the somewhat thick-walled and trabeculated urinary bladder. Air and soft tissue fullness in the perineum may be rectocele. Uterus and adnexal structures are absent. Mild scoliosis to the left of the lower lumbar spine with degenerative disc and facet changes. No blastic or lytic bone lesion. Impression: 1. Right lower lobe pneumonia. Aspiration pneumonia not excluded with some retained secretions suspected in the origin of the right lower lobe bronchus. Endoluminal mass lesion is felt less likely but not completely excluded. Followup to imaging to resolution recommended. 2. Small bilateral pleural effusions. 3. Neurogenic bladder versus chronic outlet obstruction changes in the urinary bladder. 4. Clinical correlation for small rectocele recommended. 5. 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 Please note that all CT scans at this facility use dose modulation, iterative reconstruction, and/or weight-based dosing when appropriate to reduce radiation dose to as low as reasonably achievable. Dictated by Live Whittington MD @ Nov 20 2017 3:01PM (Electronic Signature) Report Signed by Proxy. MTDD
--- NOTE | 2017-11-21 20:33 | CT ---
EXAM DATE: 11/19/17 PATIENT'S AGE: 87 Patient: LANDON KAUR Facility: [place], [place] Site . Site : 1930 Study: CT Chest [id number] 2:34:36 PM Ordering Physician: Zari Pack Final Report: Indication: Bacteremia. Comparison: None available. Technique: CT chest, abdomen and pelvis without IV or oral contrast. Findings: Chest: Visualized thyroid is normal. Moderate atherosclerotic calcification of the non aneurysmal aorta. Multiple reactive appearing mediastinal subcentimeter lymph nodes. Probable retained secretions focally occludes the right lower lobe bronchus just after the takeoff from the bronchus intermedius. Moderately prominent airspace opacity with air bronchograms in the dependent right lower lobe and peribronchial right lower lobe. Small right pleural effusion is small and dependent. Some perihilar peribronchial opacity in the right middle lobe. Small highly likely benign 2-3 mm nodule lateral segment right upper lobe. No significant airspace opacity on the left. Pulmonary vascularity in the periphery is within normal limits for age. Mild senescent interstitial prominence at the periphery of both lungs. Biapical pleural scarring. No significant bone lesion or fracture. Wires from a previous left-sided cardiac pacing device seen in the left subclavian to the mid superior vena cava. Calcification mitral valve. Some calcification aortic valve. Heart size is normal. No pericardial effusion. Tiny left pleural effusion at the costophrenic angle. Abdomen and pelvis: Cholecystectomy clips. Small splenule inferior hilum. Benign cyst left kidney. Some mild dystrophic amorphous calcification in both kidneys is in the periphery, may be within the capsule. Small saccular aneurysm of the aorta extends inferior and to the right mid infrarenal aorta. In greatest transverse diameter this measures about 18 x 12 mm (image 57 series 206 ). The overall caliber of the aorta itself is not significantly increased. Diffuse atherosclerosis and ectasia. No pathologic retroperitoneal or mesenteric adenopathy. Some formed stool through the redundant colon. Small bowel appears unremarkable. No air or fluid in the peritoneum. Small diverticula of the somewhat thick-walled and trabeculated urinary bladder. Air and soft tissue fullness in the perineum may be rectocele. Uterus and adnexal structures are absent. Mild scoliosis to the left of the lower lumbar spine with degenerative disc and facet changes. No blastic or lytic bone lesion. Impression: 1. Right lower lobe pneumonia. Aspiration pneumonia not excluded with some retained secretions suspected in the origin of the right lower lobe bronchus. Endoluminal mass lesion is felt less likely but not completely excluded. Followup to imaging to resolution recommended. 2. Small bilateral pleural effusions. 3. Neurogenic bladder versus chronic outlet obstruction changes in the urinary bladder. 4. Clinical correlation for small rectocele recommended. 5. 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 Dictated by Live Whittington MD @ Nov 20 2017 3:19PM (Electronic Signature) Report Signed by Proxy. MTDD
[2017-11-21] MEDS: Carboxymethylcellulose/Hypromellose Ophth Gel 15 ML Bottle EYELF SCH (21:38)
[2017-11-21] MEDS: Magnesium Oxide 400 MG Tab PO SCH (21:39)
[2017-11-22] MEDS: Levothyroxine 75 MCG Tab PO SCH (06:14)
[2017-11-22] MEDS: Potassium Chloride 10% 20 MEQ/15 ML Soln 30 ML UD Cup PO SCH (08:13)
[2017-11-22] MEDS: Heparin Sodium 5,000 Units/ML Vial SUBCUT SCH ×2 (08:13→20:30)
[2017-11-22] MEDS: Magnesium Oxide 400 MG Tab PO SCH ×2 (08:13→20:31)
[2017-11-22] MEDS: Fluticasone Propionate Nasal Spray 16 GM Bottle NASBOTH SCH (08:14)
[2017-11-22] MEDS: Carboxymethylcellulose Sodium 0.5% Ophth Soln 0.4 ML UD Box of 30 EYEBOTH SCH ×4 (08:20→20:31)
--- NOTE | 2017-11-22 10:22 | PCM.PN ---
- General Info Date of Service: 11/22/17 Admission Dx/Problem (Free Text): Admission Diagnosis/Problem Admission Diagnosis/Problem UTI, Urinary tract infectious disease Subjective Update: Sitting in chair eating breakfast and visiting with Daughter. Appears perkier than previous day. Reports she is feeling improved today. Cough is improving, was able to provide sample. Denies chest pain or SOB. Energy is coming back. Functional Status: Reports: Pain Controlled, Tolerating Diet, Ambulating, Urinating - Review of Systems General: Reports: Malaise (but improving. ). Denies: Fever Pulmonary: Reports: Cough, Sputum (clear to yellow). Denies: Shortness of Breath Cardiovascular: Reports: No Symptoms. Denies: Chest Pain Gastrointestinal: Reports: No Symptoms. Denies: Abdominal Pain, Nausea, Vomiting Genitourinary: Reports: No Symptoms. Denies: Dysuria, Frequency, Burning, Pain Neurological: Reports: No Symptoms. Denies: Confusion Psychiatric: Reports: No Symptoms. Denies: Confusion - Patient Data Vitals - Most Recent: Last Vital Signs Temp 97.1 F 11/22/17 04:00 Pulse 63 11/22/17 04:00 Resp 16 11/22/17 04:00 BP 125/55 L 11/22/17 04:00 Pulse Ox 96 11/22/17 04:00 Weight - Most Recent: 39.5 kg I&O - Last 24 Hours: Intake & Output 11/21/17 11/22/17 11/22/17 22:59 06:59 14:59 Intake Total 450 450 Output Total 400 450 Balance 50 0 Lab Results Last 24 Hours: Laboratory Results - last 24 hr 11/22/17 11/22/17 Range/Units 05:43 05:43 WBC 8.63 (4.0-11.0) K/uL RBC 3.02 L (4.30-5.90) M/uL Hgb 9.2 L (12.0-16.0) g/dL Hct 27.5 L (36.0-46.0) % MCV 91.1 (80.0-98.0) fL MCH 30.5 (27.0-32.0) pg MCHC 33.5 (31.0-37.0) g/dL RDW Std Deviation 50.5 (28.0-62.0) fl RDW Coeff of Carina 15 (11.0-15.0) % Plt Count 181 (150-400) K/uL MPV 9.10 (7.40-12.00) fL Neut % (Auto) 73.8 (48.0-80.0) % Lymph % (Auto) 19.1 (16.0-40.0) % [place] % (Auto) 3.8 (0.0-15.0) % Eos % (Auto) 3.2 (0.0-7.0) % Baso % (Auto) 0.1 (0.0-1.5) % Neut # (Auto) 6.4 H (1.4-5.7) K/uL Lymph # (Auto) 1.7 (0.6-2.4) K/uL [place] # (Auto) 0.3 (0.0-0.8) K/uL Eos # (Auto) 0.3 (0.0-0.7) K/uL Baso # (Auto) 0.0 (0.0-0.1) K/uL Nucleated RBC % 0.0 /100WBC Nucleated RBCs # 0 K/uL Sodium 138 (136-146) mmol/L Potassium 4.4 (3.5-5.1) mmol/L Chloride 116 H (98-110) mmol/L Carbon Dioxide 14 L (21-31) mmol/L BUN 36 H (6.0-23.0) mg/dL Creatinine 1.3 (0.6-1.5) mg/dL Est Cr Clr Drug Dosing 18.65 mL/min Estimated GFR (MDRD) 38.7 ml/min Glucose 69 (60-110) mg/dL Calcium 8.5 L (8.8-10.8) mg/dL Magnesium 2.3 (1.5-2.3) mEq/L Mack Results Last 24 Hours: Microbiology 11/20/17 19:02 Aerobic Blood Culture - Preliminary Blood NO GROWTH AFTER 1 DAY Anaerobic Blood Culture - Preliminary NO GROWTH AFTER 1 DAY 11/21/17 15:50 Stool Occult Blood (MACK) - Final Stool / Feces NEGATIVE OCCULT BLOOD Med Orders - Current: Current Medications Albuterol/Ipratropium (Duoneb 3.0-0.5 Mg/3 Ml) 3 ml NEB Q4HRRT PRN PRN Reason: Shortness Of Breath/wheezing Artificial Tears (Refresh Plus 0.5%) 0 each EYEBOTH 0900,1200,1600,2100 [facility] Last Admin: 11/22/17 08:20 Dose: 1 drop Carboxymethylcellu Sod/Hypromellose (Genteal Moderate To Severe Ophth Gel) 0 ml EYELF BEDTIME [facility] Last Admin: 11/21/17 21:38 Dose: 1 applic Fluticasone Propionate (Flonase) 0 gm NASBOTH DAILY [facility] Last Admin: 11/22/17 08:14 Dose: 1 spray Heparin Sodium (Porcine) (Heparin Sodium) 5,000 units SUBCUT Q12HR [facility] Last Admin: 11/22/17 08:13 Dose: 5,000 units Levofloxacin/Dextrose 250 mg/ (Premix) 50 mls @ 100 mls/hr IV Q48H [facility] Last Admin: 11/21/17 16:34 Dose: 100 mls/hr Levothyroxine Sodium (Levothyroxine) 37.5 mcg PO DAILY@0700 [facility] Last Admin: 11/22/17 06:14 Dose: 37.5 mcg Magnesium Oxide (Magnesium Oxide) 400 mg PO BID [facility] Last Admin: 11/22/17 08:13 Dose: 400 mg Naproxen (Naproxen Sodium) 110 mg PO BEDTIME PRN PRN Reason: Pain Last Admin: 11/21/17 22:11 Dose: 110 mg Ondansetron HCl (Zofran) 4 mg IVPUSH Q4H PRN PRN Reason: Nausea Dulera Oral Inh 100/ (5 Own Med) 0 each INH DAILY@1200 [facility] Last Admin: 11/21/17 12:53 Dose: 1 each Potassium Chloride (Potassium Chloride) 40 meq PO DAILY [facility] Last Admin: 11/22/17 08:13 Dose: 40 meq Sodium Chloride (Saline Flush) 10 ml FLUSH ASDIRECTED PRN PRN Reason: Keep Vein Open Last Admin: 11/19/17 13:49 Dose: 10 ml Sodium Chloride (Saline Flush) 2.5 ml FLUSH ASDIRECTED PRN PRN Reason: Keep Vein Open Last Admin: 11/19/17 13:49 Dose: 2.5 ml Discontinued Medications Acetaminophen (Tylenol Extra Strength) 1,000 mg PO ONETIME ONE Stop: 11/19/17 14:15 Last Admin: 11/19/17 14:34 Dose: Not Given Albuterol/Ipratropium (Duoneb 3.0-0.5 Mg/3 Ml) 3 ml NEB ONETIME ONE Stop: 11/19/17 13:27 Last Admin: 11/19/17 13:33 Dose: 3 ml Artificial Tears (Refresh Plus 0.5%) 0 each EYEBOTH TID [facility] Last Admin: 11/21/17 13:01 Dose: 1 drop Sodium Chloride (Normal Saline) 1,000 mls @ 125 mls/hr IV STAT [facility] Last Infusion: 11/19/17 14:35 Dose: 999 mls/hr Sodium Chloride (Normal Saline) 1,000 mls @ 999 mls/hr IV .Bolus ONE Stop: 11/19/17 17:51 Last Admin: 11/19/17 17:13 Dose: 999 mls/hr Levofloxacin/Dextrose 750 mg/ (Premix) 150 mls @ 100 mls/hr IV ONETIME ONE Stop: 11/19/17 18:26 Last Admin: 11/19/17 17:13 Dose: 100 mls/hr Sodium Chloride (Normal Saline) 1,000 mls @ 75 mls/hr IV ASDIRECTED [facility] Last Admin: 11/21/17 05:48 Dose: 75 mls/hr Sodium Chloride (Normal Saline) 500 mls @ 500 mls/hr IV .BOLUS [facility] Last Admin: 11/19/17 22:18 Dose: 500 mls/hr Meropenem 1 gm/ Sodium (Chloride) 100 mls @ 200 mls/hr IV Q8H [facility] Last Admin: 11/20/17 23:44 Dose: Not Given Meropenem 500 mg/ Sodium (Chloride) 50 mls @ 100 mls/hr IV Q12H [facility] Last Admin: 11/21/17 01:19 Dose: 100 mls/hr Vancomycin HCl 500 mg/ Sodium (Chloride) 100 mls @ 100 mls/hr IV Q24H [facility] Last Admin: 11/20/17 18:27 Dose: 100 mls/hr Magnesium Sulfate 4 gm/ Premix 100 mls @ 50 mls/hr IV ONETIME ONE Stop: 11/21/17 14:20 Last Admin: 11/21/17 12:53 Dose: 50 mls/hr Ibuprofen (Motrin) 200 mg PO ONETIME ONE Stop: 11/19/17 14:22 Last Admin: 11/19/17 14:34 Dose: Not Given Ibuprofen (Motrin) 400 mg PO ONETIME ONE Stop: 11/19/17 14:35 Last Admin: 11/19/17 15:03 Dose: 400 mg Ibuprofen (Motrin) Confirm Administered Dose 400 mg .ROUTE .STK-MED ONE Stop: 11/19/17 14:34 Last Admin: 11/19/17 15:02 Dose: Not Given Potassium Chloride (Klor-Con M20) 40 meq PO ONETIME ONE Stop: 11/21/17 09:10 Last Admin: 11/21/17 10:23 Dose: Not Given Potassium Chloride (Potassium Chloride) 40 meq PO ONETIME ONE Stop: 11/21/17 09:42 Last Admin: 11/21/17 10:10 Dose: 40 meq Vancomycin HCl (Pharmacy To Dose - Vancomycin) 1 dose .XX ASDIRECTED AP[facility] - Exam Quality Assessment: Supplemental Oxygen, DVT Prophylaxis General: Alert, Oriented, Cooperative, No Acute Distress HEENT: Pupils Equal, Mucous Membr. Moist/[place] Neck: Supple Lungs: Clear to Auscultation, Normal Respiratory Effort Cardiovascular: Regular Rate, Regular Rhythm, No Murmurs GI/Abdominal Exam: Normal Bowel Sounds, Soft, Non-Tender, No Organomegaly, No Distention, No Abnormal Bruit, No Mass, Pelvis Stable Extremities: Normal Inspection, Normal Range of Motion, Non-Tender, No Pedal Edema, Normal Capillary Refill Neurological: No New Focal Deficit Psy/Mental Status: Alert, Normal Affect, Normal Mood - Problem List & Annotations (1) Community acquired bacterial pneumonia SNOMED Code(s): 787834247 Code(s): J15.9 - UNSPECIFIED BACTERIAL PNEUMONIA Status: Acute Current Visit: Yes (2) UTI (urinary tract infection) SNOMED Code(s): 91497259 Code(s): N39.0 - URINARY TRACT INFECTION, SITE NOT SPECIFIED Status: Acute Current Visit: Yes (3) Positive blood culture SNOMED Code(s): 433663032 Code(s): R78.81 - BACTEREMIA Status: Acute Current Visit: Yes (4) General weakness SNOMED Code(s): 97369109 Code(s): R53.1 - WEAKNESS Status: Acute Current Visit: Yes (5) [place]IA (acute kidney injury) SNOMED Code(s): 82002209 Code(s): N17.9 - ACUTE KIDNEY FAILURE, UNSPECIFIED Status: Acute Current Visit: Yes (6) Hx of lymphoma SNOMED Code(s): 183603683 Code(s): Z85.72 - PERSONAL HISTORY OF NON-HODGKIN LYMPHOMAS Status: Chronic Current Visit: Yes (7) History of recurrent UTIs SNOMED Code(s): 109126423 Code(s): Z87.440 - PERSONAL HISTORY OF URINARY (TRACT) INFECTIONS Status: Chronic Current Visit: Yes (8) Hx of rheumatoid arthritis SNOMED Code(s): 540961998 Code(s): Z87.39 - PERSONAL HISTORY OF DISEASES OF THE MS SYS AND CONN TISS Status: Chronic Current Visit: Yes (9) Celiac disease SNOMED Code(s): 650917009 Code(s): K90.0 - CELIAC DISEASE Status: Chronic Current Visit: Yes - Problem List Review Problem List Initiated/Reviewed/Updated: Yes - My Orders Last 24 Hours: My Active Orders 11/21/17 09:41 Consult to Speech Language Pathology [COORDINATOR OF HEALTH SERVICES Evaluation and Treatment] [CONS] Routine 11/21/17 12:21 Modified Barium Swallow Study [Swallowing Function w Video] [CR] Routine 11/21/17 12:22 Consult to Physical Therapy [PT Evaluation and Treatment] [CONS] Routine 11/21/17 21:00 Magnesium Oxide 400 mg PO BID 11/22/17 09:00 Potassium Chloride 40 meq PO DAILY 11/23/17 05:11 BASIC METABOLIC PANEL,BMP [CHEM] AM CBC WITH AUTO DIFF [HEME] AM MAGNESIUM [CHEM] AM 11/24/17 05:11 BASIC METABOLIC PANEL,BMP [CHEM] AM CBC WITH AUTO DIFF [HEME] AM MAGNESIUM [CHEM] AM - Plan Plan:: 87 yo female admitted for UTI and possible pneumonia. 1. Pneumonia: Continues to improve, lung sounds clear today. Chest CT revealed R LLL pneumonia, possible aspiration. Aerobic blood cultures returned with Strep pneumoniae, all antibiotics, except Levaquin, stopped. Leukocytosis continues to improve today, 8,630. ST evaluation and obtained modified barium swallow study, which should penetration on most textures and positions. No aspiration noted. Encouraged Swallowing exercises and honey thick liquids with soft textures in small bites and sips. Attempt to wean O2 today. Wears 2 L NC at bedtime at home. 2. UTI: Improving. UC returned with Mixed stan >100,000. Continue Levaquin 3. INDIA: Resolved. Appears to be at baseline. Will continue to monitor 4. Generalized weakness: Improving. Likely secondary to acute illness, but will order PT to evaluate and treat to keep strength. Encourage OOB to chair for all meals and ambulate with nursing. VTE prophylaxis: Heparin Dispo: 2-3 days pending improvement. Explained discharge may be in next couple days due to improvement. Daughter and patient are aware and ok with this.
[2017-11-22] MEDS: DULERA INH SCH (12:05)
[2017-11-22] MEDS: Carboxymethylcellulose/Hypromellose Ophth Gel 15 ML Bottle EYELF SCH (20:31)
[2017-11-23] MEDS: Levothyroxine 75 MCG Tab PO SCH (06:45)
[2017-11-23] MEDS: Magnesium Oxide 400 MG Tab PO SCH ×2 (08:59→20:55)
[2017-11-23] MEDS: Potassium Chloride 10% 20 MEQ/15 ML Soln 30 ML UD Cup PO SCH (08:59)
[2017-11-23] MEDS: Heparin Sodium 5,000 Units/ML Vial SUBCUT SCH ×2 (09:02→20:57)
[2017-11-23] MEDS: Fluticasone Propionate Nasal Spray 16 GM Bottle NASBOTH SCH (09:04)
[2017-11-23] MEDS: Carboxymethylcellulose Sodium 0.5% Ophth Soln 0.4 ML UD Box of 30 EYEBOTH SCH ×4 (09:06→20:56)
--- NOTE | 2017-11-23 09:36 | PCM.PN ---
- General Info Date of Service: 11/23/17 Admission Dx/Problem (Free Text): Admission Diagnosis/Problem Admission Diagnosis/Problem UTI, Urinary tract infectious disease Subjective Update: Weaned off oxygen today, feeling better. Reports not feeling strong enough and is worried about getting around at her apartment, where she has very little help. She denies chest pain or SOB. Had a coughing episode while eating eggs this morning, reports it went down the wrong tube. Discussed with her the recommendations of the Speech therapist and she really doesn't want to change her diet from what it is currently. She reports being limited so much already she doesn't want to limit it more and thicken her liquids. Functional Status: Reports: Pain Controlled, Tolerating Diet, Ambulating (has not been ambulating in hallway yet.), Urinating - Review of Systems General: Reports: Weakness (generalized.). Denies: Fever HEENT: Reports: No Symptoms. Denies: Ear Pain, Headaches, Sore Throat, Visual Changes Pulmonary: Reports: Cough. Denies: Shortness of Breath, Sputum, Wheezing Cardiovascular: Reports: No Symptoms. Denies: Chest Pain, Edema, Lightheadedness Gastrointestinal: Reports: No Symptoms. Denies: Abdominal Pain, Nausea, Vomiting Genitourinary: Reports: No Symptoms. Denies: Dysuria, Frequency, Burning Musculoskeletal: Reports: No Symptoms Neurological: Reports: No Symptoms. Denies: Confusion Psychiatric: Reports: No Symptoms. Denies: Confusion - Patient Data Vitals - Most Recent: Last Vital Signs Temp 96.3 F 11/23/17 08:00 Pulse 59 L 11/23/17 08:00 Resp 22 H 11/23/17 08:00 BP 102/45 L 11/23/17 08:00 Pulse Ox 93 L 11/23/17 08:00 Weight - Most Recent: 39.5 kg I&O - Last 24 Hours: Intake & Output 11/22/17 11/23/17 11/23/17 22:59 06:59 14:59 Intake Total 750 360 Output Total 300 700 Balance 450 -340 Lab Results Last 24 Hours: Laboratory Results - last 24 hr 11/23/17 11/23/17 Range/Units 04:58 04:58 WBC 5.89 (4.0-11.0) K/uL RBC 3.06 L (4.30-5.90) M/uL Hgb 9.2 L (12.0-16.0) g/dL Hct 27.8 L (36.0-46.0) % MCV 90.8 (80.0-98.0) fL MCH 30.1 (27.0-32.0) pg MCHC 33.1 (31.0-37.0) g/dL RDW Std Deviation 50.5 (28.0-62.0) fl RDW Coeff of Carina 15 (11.0-15.0) % Plt Count 188 (150-400) K/uL MPV 9.00 (7.40-12.00) fL Neut % (Auto) 64.1 (48.0-80.0) % Lymph % (Auto) 23.1 (16.0-40.0) % [place] % (Auto) 7.3 (0.0-15.0) % Eos % (Auto) 5.3 (0.0-7.0) % Baso % (Auto) 0.2 (0.0-1.5) % Neut # (Auto) 3.8 (1.4-5.7) K/uL Lymph # (Auto) 1.4 (0.6-2.4) K/uL [place] # (Auto) 0.4 (0.0-0.8) K/uL Eos # (Auto) 0.3 (0.0-0.7) K/uL Baso # (Auto) 0.0 (0.0-0.1) K/uL Nucleated RBC % 0.0 /100WBC Nucleated RBCs # 0 K/uL Sodium 137 (136-146) mmol/L Potassium 4.5 (3.5-5.1) mmol/L Chloride 114 H (98-110) mmol/L Carbon Dioxide 16 L (21-31) mmol/L BUN 34 H (6.0-23.0) mg/dL Creatinine 1.3 (0.6-1.5) mg/dL Est Cr Clr Drug Dosing 18.65 mL/min Estimated GFR (MDRD) 38.7 ml/min Glucose 68 (60-110) mg/dL Calcium 8.5 L (8.8-10.8) mg/dL Magnesium 1.9 (1.5-2.3) mEq/L Mack Results Last 24 Hours: Microbiology 11/20/17 19:02 Aerobic Blood Culture - Preliminary Blood NO GROWTH AFTER 2 DAYS Anaerobic Blood Culture - Preliminary NO GROWTH AFTER 2 DAYS Med Orders - Current: Current Medications Albuterol/Ipratropium (Duoneb 3.0-0.5 Mg/3 Ml) 3 ml NEB Q4HRRT PRN PRN Reason: Shortness Of Breath/wheezing Artificial Tears (Refresh Plus 0.5%) 0 each EYEBOTH 0900,1200,1600,2100 [facility] Last Admin: 11/23/17 09:06 Dose: 1 drop Carboxymethylcellu Sod/Hypromellose (Genteal Moderate To Severe Ophth Gel) 0 ml EYELF BEDTIME [facility] Last Admin: 11/22/17 20:31 Dose: 1 applic Fluticasone Propionate (Flonase) 0 gm NASBOTH DAILY [facility] Last Admin: 11/23/17 09:04 Dose: 1 spray Heparin Sodium (Porcine) (Heparin Sodium) 5,000 units SUBCUT Q12HR [facility] Last Admin: 11/23/17 09:02 Dose: 5,000 units Levofloxacin/Dextrose 250 mg/ (Premix) 50 mls @ 100 mls/hr IV Q48H [facility] Last Admin: 11/21/17 16:34 Dose: 100 mls/hr Levothyroxine Sodium (Levothyroxine) 37.5 mcg PO DAILY@0700 [facility] Last Admin: 11/23/17 06:45 Dose: 37.5 mcg Magnesium Oxide (Magnesium Oxide) 400 mg PO BID [facility] Last Admin: 11/23/17 08:59 Dose: 400 mg Naproxen (Naproxen Sodium) 110 mg PO BEDTIME PRN PRN Reason: Pain Last Admin: 11/22/17 20:32 Dose: 110 mg Ondansetron HCl (Zofran) 4 mg IVPUSH Q4H PRN PRN Reason: Nausea Dulera Oral Inh 100/ (5 Own Med) 0 each INH DAILY@1200 [facility] Last Admin: 11/22/17 12:05 Dose: 1 each Potassium Chloride (Potassium Chloride) 40 meq PO DAILY [facility] Last Admin: 11/23/17 08:59 Dose: 40 meq Sodium Chloride (Saline Flush) 10 ml FLUSH ASDIRECTED PRN PRN Reason: Keep Vein Open Last Admin: 11/19/17 13:49 Dose: 10 ml Sodium Chloride (Saline Flush) 2.5 ml FLUSH ASDIRECTED PRN PRN Reason: Keep Vein Open Last Admin: 11/19/17 13:49 Dose: 2.5 ml Discontinued Medications Acetaminophen (Tylenol Extra Strength) 1,000 mg PO ONETIME ONE Stop: 11/19/17 14:15 Last Admin: 11/19/17 14:34 Dose: Not Given Albuterol/Ipratropium (Duoneb 3.0-0.5 Mg/3 Ml) 3 ml NEB ONETIME ONE Stop: 11/19/17 13:27 Last Admin: 11/19/17 13:33 Dose: 3 ml Artificial Tears (Refresh Plus 0.5%) 0 each EYEBOTH TID [facility] Last Admin: 11/21/17 13:01 Dose: 1 drop Sodium Chloride (Normal Saline) 1,000 mls @ 125 mls/hr IV STAT [facility] Last Infusion: 11/19/17 14:35 Dose: 999 mls/hr Sodium Chloride (Normal Saline) 1,000 mls @ 999 mls/hr IV .Bolus ONE Stop: 11/19/17 17:51 Last Admin: 11/19/17 17:13 Dose: 999 mls/hr Levofloxacin/Dextrose 750 mg/ (Premix) 150 mls @ 100 mls/hr IV ONETIME ONE Stop: 11/19/17 18:26 Last Admin: 11/19/17 17:13 Dose: 100 mls/hr Sodium Chloride (Normal Saline) 1,000 mls @ 75 mls/hr IV ASDIRECTED [facility] Last Admin: 11/21/17 05:48 Dose: 75 mls/hr Sodium Chloride (Normal Saline) 500 mls @ 500 mls/hr IV .BOLUS [facility] Last Admin: 11/19/17 22:18 Dose: 500 mls/hr Meropenem 1 gm/ Sodium (Chloride) 100 mls @ 200 mls/hr IV Q8H [facility] Last Admin: 11/20/17 23:44 Dose: Not Given Meropenem 500 mg/ Sodium (Chloride) 50 mls @ 100 mls/hr IV Q12H [facility] Last Admin: 11/21/17 01:19 Dose: 100 mls/hr Vancomycin HCl 500 mg/ Sodium (Chloride) 100 mls @ 100 mls/hr IV Q24H [facility] Last Admin: 11/20/17 18:27 Dose: 100 mls/hr Magnesium Sulfate 4 gm/ Premix 100 mls @ 50 mls/hr IV ONETIME ONE Stop: 11/21/17 14:20 Last Admin: 11/21/17 12:53 Dose: 50 mls/hr Ibuprofen (Motrin) 200 mg PO ONETIME ONE Stop: 11/19/17 14:22 Last Admin: 11/19/17 14:34 Dose: Not Given Ibuprofen (Motrin) 400 mg PO ONETIME ONE Stop: 11/19/17 14:35 Last Admin: 11/19/17 15:03 Dose: 400 mg Ibuprofen (Motrin) Confirm Administered Dose 400 mg .ROUTE .STK-MED ONE Stop: 11/19/17 14:34 Last Admin: 11/19/17 15:02 Dose: Not Given Potassium Chloride (Klor-Con M20) 40 meq PO ONETIME ONE Stop: 11/21/17 09:10 Last Admin: 11/21/17 10:23 Dose: Not Given Potassium Chloride (Potassium Chloride) 40 meq PO ONETIME ONE Stop: 11/21/17 09:42 Last Admin: 11/21/17 10:10 Dose: 40 meq Vancomycin HCl (Pharmacy To Dose - Vancomycin) 1 dose .XX ASDIRECTED [facility] - Exam General: Alert, Oriented, Cooperative, No Acute Distress Neck: Supple Lungs: Clear to Auscultation, Normal Respiratory Effort, Other (was coughing heavily when I walked into room, reports swallowing eggs wrong. ) Cardiovascular: Regular Rate, Regular Rhythm GI/Abdominal Exam: Normal Bowel Sounds, Soft, Non-Tender, No Organomegaly, No Distention, No Abnormal Bruit, No Mass, Pelvis Stable Extremities: Normal Inspection, Normal Range of Motion, Non-Tender, No Pedal Edema, Normal Capillary Refill Skin: Warm, Dry, Intact Neurological: No New Focal Deficit Psy/Mental Status: Alert, Normal Affect, Normal Mood - Problem List & Annotations (1) Community acquired bacterial pneumonia SNOMED Code(s): 129599160 Code(s): J15.9 - UNSPECIFIED BACTERIAL PNEUMONIA Status: Acute Current Visit: Yes (2) UTI (urinary tract infection) SNOMED Code(s): 63344749 Code(s): N39.0 - URINARY TRACT INFECTION, SITE NOT SPECIFIED Status: Acute Current Visit: Yes (3) Positive blood culture SNOMED Code(s): 732940515 Code(s): R78.81 - BACTEREMIA Status: Acute Current Visit: Yes (4) General weakness SNOMED Code(s): 72262229 Code(s): R53.1 - WEAKNESS Status: Acute Current Visit: Yes (5) [place] (acute kidney injury) SNOMED Code(s): 81697298 Code(s): N17.9 - ACUTE KIDNEY FAILURE, UNSPECIFIED Status: Acute Current Visit: Yes (6) Hx of lymphoma SNOMED Code(s): 050833790 Code(s): Z85.72 - PERSONAL HISTORY OF NON-HODGKIN LYMPHOMAS Status: Chronic Current Visit: Yes (7) History of recurrent UTIs SNOMED Code(s): 737887275 Code(s): Z87.440 - PERSONAL HISTORY OF URINARY (TRACT) INFECTIONS Status: Chronic Current Visit: Yes (8) Hx of rheumatoid arthritis SNOMED Code(s): 032589042 Code(s): Z87.39 - PERSONAL HISTORY OF DISEASES OF THE MS SYS AND CONN TISS Status: Chronic Current Visit: Yes (9) Celiac disease SNOMED Code(s): 882840873 Code(s): K90.0 - CELIAC DISEASE Status: Chronic Current Visit: Yes - Problem List Review Problem List Initiated/Reviewed/Updated: Yes - My Orders Last 24 Hours: My Active Orders 11/22/17 09:00 Potassium Chloride 40 meq PO DAILY 11/22/17 12:37 Communication Order [RC] PRN 11/24/17 05:11 BASIC METABOLIC PANEL,BMP [CHEM] AM CBC WITH AUTO DIFF [HEME] AM MAGNESIUM [CHEM] AM - Plan Plan:: 87 yo female admitted for UTI and possible pneumonia. 1. Pneumonia: Continues to show improvement, weaned off oxygen during the day. Aerobic blood cultures returned with Strep pneumoniae. Repeat BC negative x 2 days. Continue Levaquin. Leukocytosis resolved. reporting that she does not want to change diet, to include honey thick liquids, because her diet is already so limited due to dysphagia. She will keep her diet as if. Encouraged Swallowing exercises per ST. Wears 2 L NC at bedtime at home. 2. UTI: Improving. Continue Levaquin. 3. Generalized weakness: Improving. But not feeling totally strong enough to return to home. Spoke with Emigdio, social work, who will provide her with [facility] application. Possible transfer to [place] tomorrow for short term rehabilitation until she is storng enough to return home. Continue PT and encouraging OOB to chair for all meals and ambulate with nursing. VTE prophylaxis: Heparin Dispo: Possible discharge in am to [place]. Dr Matt is her PCP.
[2017-11-23] MEDS: DULERA INH SCH (11:41)
[2017-11-23] MEDS: Levofloxacin/Dextrose 5%-Water 250 MG in Premix Bag 1 BAG IV SCH (16:22)
[2017-11-23] MEDS: Carboxymethylcellulose/Hypromellose Ophth Gel 15 ML Bottle EYELF SCH (20:56)
[2017-11-24] MEDS: Levothyroxine 75 MCG Tab PO SCH (06:21)
[2017-11-24] MEDS: Potassium Chloride 10% 20 MEQ/15 ML Soln 30 ML UD Cup PO SCH (08:04)
[2017-11-24] MEDS: Fluticasone Propionate Nasal Spray 16 GM Bottle NASBOTH SCH (08:04)
[2017-11-24] MEDS: Heparin Sodium 5,000 Units/ML Vial SUBCUT SCH (08:05)
[2017-11-24] MEDS: Magnesium Oxide 400 MG Tab PO SCH (08:05)
[2017-11-24] MEDS: Carboxymethylcellulose Sodium 0.5% Ophth Soln 0.4 ML UD Box of 30 EYEBOTH SCH ×2 (08:17→11:36)
--- NOTE | 2017-11-24 08:52 | PCM.DCSUM1 ---
Discharge Summary - Hospital Course Brief History: This 87 year old female with pmh of dysphagia seondary to chemotherapy and radiation from lymphoma, celiac disease, recurrent UTIs, and impair hearing presented to the ED with shortness of breath, productive cough, and generalized weakness. Patient reports having cold with post nasal drip several days prior to shortness of breath. She denies any chest pain. She was noted to have a fever of 39.1. CXR showed no focal consolidation and UA had +2 bacteria. - Discharge Data Discharge Date: 11/24/17 Discharge Disposition: DC/Tfer to SNF 03 Condition: Good - Discharge Diagnosis/Problem(s) (1) Community acquired bacterial pneumonia SNOMED Code(s): 942242086 ICD Code: J15.9 - UNSPECIFIED BACTERIAL PNEUMONIA Status: Acute (2) UTI (urinary tract infection) SNOMED Code(s): 79108268 ICD Code: N39.0 - URINARY TRACT INFECTION, SITE NOT SPECIFIED Status: Acute (3) Positive blood culture SNOMED Code(s): 130874684 ICD Code: R78.81 - BACTEREMIA Status: Acute (4) General weakness SNOMED Code(s): 92096356 ICD Code: R53.1 - WEAKNESS Status: Acute (5) INDIA (acute kidney injury) SNOMED Code(s): 85543688 ICD Code: N17.9 - ACUTE KIDNEY FAILURE, UNSPECIFIED Status: Acute (6) Hx of lymphoma SNOMED Code(s): 763681217 ICD Code: Z85.72 - PERSONAL HISTORY OF NON-HODGKIN LYMPHOMAS Status: Chronic (7) History of recurrent UTIs SNOMED Code(s): 533822592 ICD Code: Z87.440 - PERSONAL HISTORY OF URINARY (TRACT) INFECTIONS Status: Chronic (8) Hx of rheumatoid arthritis SNOMED Code(s): 545373620 ICD Code: Z87.39 - PERSONAL HISTORY OF DISEASES OF THE MS SYS AND CONN TISS Status: Chronic (9) Celiac disease SNOMED Code(s): 304841647 ICD Code: K90.0 - CELIAC DISEASE Status: Chronic - Patient Summary/Data Consults: Consultations 11/21/17 09:41 Consult to Speech Language Pathology [BUSHEL WORKER Evaluation and Treatment] [CONS] Routine 11/21/17 12:22 Consult to Physical Therapy [PT Evaluation and Treatment] [CONS] Routine - Patient Instructions Diet, Other: Gluten free, soft diet. small bites/small sips. Boost/Ensure PRN Activity: As Tolerated Showering/Bathing: May Shower Notify Provider of: Fever, Increased Pain, Swelling and Redness, Drainage, Nausea and/or Vomiting Other/Special Instructions: PT/OT/ST to evaluate and treat. Oxygen 2 L NC at nighttime - Discharge Plan Prescriptions/Med Rec: Levofloxacin [Levaquin] 250 mg PO Q48H #6 tablet Home Medications: Home Meds Calcitonin ([place]) [Miacalcin Nasal [place]] 1 inh INH DAILY 12/10/14 [History] Levothyroxine Sodium [Synthroid] 37.5 mcg PO DAILY 12/10/14 [History] Magnesium Oxide 400 mg PO BID 12/10/14 [History] Multivitamin [Multi-Vitamin Daily] 1 tab PO DAILY 12/10/14 [History] Potassium Chloride 40 meq PO DAILY 12/10/14 [History] Lutein/Minerals/Vit A,C & E [Ocuvite] PO DAILY 11/19/17 [History] Fluticasone Propionate [Flonase] 1 spray NASBOTH DAILY 11/20/17 [History] Hypromellose [Genteal Severe] 1 drop EYELF BEDTIME 11/20/17 [History] Mometasone/Formoterol [Dulera 100-5 MCG] 1 puff IH DAILY 11/20/17 [History] Naproxen Sodium [Aleve] 0.5 tab PO BEDTIME PRN 11/20/17 [History] Propylene Glycol [Systane Balance] 1 drop EYEBOTH TID 11/20/17 [History] Levofloxacin [Levaquin] 250 mg PO Q48H #6 tablet 11/24/17 [Rx] Patient Handouts: Urinary Tract Infection, Adult, [id number], Levofloxacin tablets Referrals: [facility] [Outside] Priyank Matt MD [Physician] - 11/30/17 (Follow on next shivam rounds.) - Discharge Summary/Plan Comment DC Time >30 min.: No Discharge Summary/Plan Comment: Discharge Diagnoses: CAP Suspected aspiration pneumonia Strep pneumoniae bacteremia Generalized weaknedd Deconditioning Dysphagia Hx Lymphoma celiac disease Daniela was admitted and initially treated for pneumonia. CT of chest abdomen and pelvis were obtained due to leukocytosis and no clear source of infection. Chest CT revealed R LLL pneumonia, questionable aspiration due to retain secretions in origin of R lower lobe bronchus. Antibiotic coverage was expanded due to increasing leukocytosis, day 2 of admission and due to positive blood cultures return with gram negative celestino and gram positive cocci. Upon further review by Micro, no gram neg rods were noted and BC returned with Strep pneumoniae. Antibiotics coverage was de-escalated to Levaquin along, which would cover UTI. UC returned with mixed stan >100,000. She continued to slowly improve. She continued to have some generalized weakness and deconditioning from acute illness. ST was consulted due to suspected aspiration. Modified barium swallow study was obtained. This showed penetration of all consistencies but no aspiration. She was encouraged to complete swallowing exercises and to use honey thicken liquids with soft foods. She had declined thickening liquids. Today leukocytosis has resolved and WBC 5,900. INDIA resolved a couple days ago and BUN 31, Cr 1.3 which is baseline. She will be sent home on Levaquin 250 mg [id number] for 11 more days for penumonia and bacteremia. She will be followed at [place] by Dr Matt, who is PCP and aware of transfer to [place] for short term rehabilitation due to deconditioning. She is to return to ED or clinic if concerns should arise. - General Info Date of Service: 11/24/17 Admission Dx/Problem (Free Text: Admission Diagnosis/Problem Admission Diagnosis/Problem UTI, Urinary tract infectious disease Subjective Update: Sitting up in chair, visit with daughter. Reports feeling tired today after walking so much yesterday. No chest pain or SOB. Cough continues but is improving. Functional Status: Reports: Pain Controlled, Tolerating Diet, Ambulating, Urinating - Review of Systems General: Reports: No Symptoms. Denies: Fever Pulmonary: Reports: Cough. Denies: Shortness of Breath, Sputum, Hemoptysis, Wheezing Cardiovascular: Reports: No Symptoms. Denies: Chest Pain, Palpitations, Lightheadedness Gastrointestinal: Reports: No Symptoms. Denies: Abdominal Pain, Nausea, Vomiting Genitourinary: Reports: No Symptoms. Denies: Dysuria, Frequency, Burning, Pain Neurological: Reports: No Symptoms. Denies: Confusion, Dizziness Psychiatric: Reports: No Symptoms. Denies: Confusion - Patient Data Vitals - Most Recent: Last Vital Signs Temp 98.9 F 11/24/17 04:00 Pulse 62 11/24/17 04:00 Resp 17 11/24/17 04:00 BP 120/58 L 11/24/17 04:00 Pulse Ox 97 11/24/17 04:00 Weight - Most Recent: 39.5 kg I&O - Last 24 hours: Intake & Output 11/23/17 11/24/17 11/24/17 22:59 06:59 14:59 Intake Total 787 350 Output Total 1100 1585 Balance -313 -1235 Lab Results - Last 24 hrs: Laboratory Results - last 24 hr 11/24/17 11/24/17 Range/Units 05:12 05:12 WBC 5.97 (4.0-11.0) K/uL RBC 3.13 L (4.30-5.90) M/uL Hgb 9.3 L (12.0-16.0) g/dL Hct 28.1 L (36.0-46.0) % MCV 89.8 (80.0-98.0) fL MCH 29.7 (27.0-32.0) pg MCHC 33.1 (31.0-37.0) g/dL RDW Std Deviation 48.8 (28.0-62.0) fl RDW Coeff of Carina 15 (11.0-15.0) % Plt Count 188 (150-400) K/uL MPV 9.20 (7.40-12.00) fL Neut % (Auto) 56.5 (48.0-80.0) % Lymph % (Auto) 25.8 (16.0-40.0) % [place] % (Auto) 13.4 (0.0-15.0) % Eos % (Auto) 4.0 (0.0-7.0) % Baso % (Auto) 0.3 (0.0-1.5) % Neut # (Auto) 3.4 (1.4-5.7) K/uL Lymph # (Auto) 1.5 (0.6-2.4) K/uL [place] # (Auto) 0.8 (0.0-0.8) K/uL Eos # (Auto) 0.2 (0.0-0.7) K/uL Baso # (Auto) 0.0 (0.0-0.1) K/uL Nucleated RBC % 0.0 /100WBC Nucleated RBCs # 0 K/uL Sodium 136 (136-146) mmol/L Potassium 4.2 (3.5-5.1) mmol/L Chloride 110 (98-110) mmol/L Carbon Dioxide 20 L (21-31) mmol/L BUN 31 H (6.0-23.0) mg/dL Creatinine 1.3 (0.6-1.5) mg/dL Est Cr Clr Drug Dosing 18.65 mL/min Estimated GFR (MDRD) 38.7 ml/min Glucose 76 (60-110) mg/dL Calcium 8.8 (8.8-10.8) mg/dL Magnesium 1.5 (1.5-2.3) mEq/L SANTA Results - Last 24 hrs: Microbiology 11/20/17 19:02 Aerobic Blood Culture - Preliminary Blood NO GROWTH AFTER 3 DAYS Anaerobic Blood Culture - Preliminary NO GROWTH AFTER 3 DAYS Med Orders - Current: Current Medications Albuterol/Ipratropium (Duoneb 3.0-0.5 Mg/3 Ml) 3 ml NEB Q4HRRT PRN PRN Reason: Shortness Of Breath/wheezing Artificial Tears (Refresh Plus 0.5%) 0 each EYEBOTH 0900,1200,1600,2100 [facility] Last Admin: 11/24/17 08:17 Dose: 1 drop Carboxymethylcellu Sod/Hypromellose (Genteal Moderate To Severe Ophth Gel) 0 ml EYELF BEDTIME [facility] Last Admin: 11/23/17 20:56 Dose: 1 applic Fluticasone Propionate (Flonase) 0 gm NASBOTH DAILY [facility] Last Admin: 11/24/17 08:04 Dose: 1 spray Heparin Sodium (Porcine) (Heparin Sodium) 5,000 units SUBCUT Q12HR [facility] Last Admin: 11/24/17 08:05 Dose: 5,000 units Levofloxacin/Dextrose 250 mg/ (Premix) 50 mls @ 100 mls/hr IV Q48H [facility] Last Admin: 11/23/17 16:22 Dose: 100 mls/hr Levothyroxine Sodium (Levothyroxine) 37.5 mcg PO DAILY@0700 [facility] Last Admin: 11/24/17 06:21 Dose: 37.5 mcg Magnesium Oxide (Magnesium Oxide) 400 mg PO BID [facility] Last Admin: 11/24/17 08:05 Dose: 400 mg Naproxen (Naproxen Sodium) 110 mg PO BEDTIME PRN PRN Reason: Pain Last Admin: 11/23/17 21:23 Dose: 110 mg Ondansetron HCl (Zofran) 4 mg IVPUSH Q4H PRN PRN Reason: Nausea Dulera Oral Inh 100/ (5 Own Med) 0 each INH DAILY@1200 [facility] Last Admin: 11/23/17 11:41 Dose: 1 each Potassium Chloride (Potassium Chloride) 40 meq PO DAILY [facility] Last Admin: 11/24/17 08:04 Dose: 40 meq Sodium Chloride (Saline Flush) 10 ml FLUSH ASDIRECTED PRN PRN Reason: Keep Vein Open Last Admin: 11/19/17 13:49 Dose: 10 ml Sodium Chloride (Saline Flush) 2.5 ml FLUSH ASDIRECTED PRN PRN Reason: Keep Vein Open Last Admin: 11/19/17 13:49 Dose: 2.5 ml Discontinued Medications Acetaminophen (Tylenol Extra Strength) 1,000 mg PO ONETIME ONE Stop: 11/19/17 14:15 Last Admin: 11/19/17 14:34 Dose: Not Given Albuterol/Ipratropium (Duoneb 3.0-0.5 Mg/3 Ml) 3 ml NEB ONETIME ONE Stop: 11/19/17 13:27 Last Admin: 11/19/17 13:33 Dose: 3 ml Artificial Tears (Refresh Plus 0.5%) 0 each EYEBOTH TID [facility] Last Admin: 11/21/17 13:01 Dose: 1 drop Sodium Chloride (Normal Saline) 1,000 mls @ 125 mls/hr IV STAT [facility] Last Infusion: 11/19/17 14:35 Dose: 999 mls/hr Sodium Chloride (Normal Saline) 1,000 mls @ 999 mls/hr IV .Bolus ONE Stop: 11/19/17 17:51 Last Admin: 11/19/17 17:13 Dose: 999 mls/hr Levofloxacin/Dextrose 750 mg/ (Premix) 150 mls @ 100 mls/hr IV ONETIME ONE Stop: 11/19/17 18:26 Last Admin: 11/19/17 17:13 Dose: 100 mls/hr Sodium Chloride (Normal Saline) 1,000 mls @ 75 mls/hr IV ASDIRECTED [facility] Last Admin: 11/21/17 05:48 Dose: 75 mls/hr Sodium Chloride (Normal Saline) 500 mls @ 500 mls/hr IV .BOLUS [facility] Last Admin: 11/19/17 22:18 Dose: 500 mls/hr Meropenem 1 gm/ Sodium (Chloride) 100 mls @ 200 mls/hr IV Q8H [facility] Last Admin: 11/20/17 23:44 Dose: Not Given Meropenem 500 mg/ Sodium (Chloride) 50 mls @ 100 mls/hr IV Q12H [facility] Last Admin: 11/21/17 01:19 Dose: 100 mls/hr Vancomycin HCl 500 mg/ Sodium (Chloride) 100 mls @ 100 mls/hr IV Q24H [facility] Last Admin: 11/20/17 18:27 Dose: 100 mls/hr Magnesium Sulfate 4 gm/ Premix 100 mls @ 50 mls/hr IV ONETIME ONE Stop: 11/21/17 14:20 Last Admin: 11/21/17 12:53 Dose: 50 mls/hr Ibuprofen (Motrin) 200 mg PO ONETIME ONE Stop: 11/19/17 14:22 Last Admin: 11/19/17 14:34 Dose: Not Given Ibuprofen (Motrin) 400 mg PO ONETIME ONE Stop: 11/19/17 14:35 Last Admin: 11/19/17 15:03 Dose: 400 mg Ibuprofen (Motrin) Confirm Administered Dose 400 mg .ROUTE .STK-MED ONE Stop: 11/19/17 14:34 Last Admin: 11/19/17 15:02 Dose: Not Given Potassium Chloride (Klor-Con M20) 40 meq PO ONETIME ONE Stop: 11/21/17 09:10 Last Admin: 11/21/17 10:23 Dose: Not Given Potassium Chloride (Potassium Chloride) 40 meq PO ONETIME ONE Stop: 11/21/17 09:42 Last Admin: 11/21/17 10:10 Dose: 40 meq Vancomycin HCl (Pharmacy To Dose - Vancomycin) 1 dose .XX ASDIRECTED [facility] - Exam General: Reports: Alert, Oriented, Cooperative, No Acute Distress Neck: Reports: Supple Lungs: Reports: Clear to Auscultation, Normal Respiratory Effort Cardiovascular: Reports: Regular Rate, Regular Rhythm GI/Abdominal Exam: Normal Bowel Sounds, Soft, Non-Tender, No Organomegaly, No Distention, No Abnormal Bruit, No Mass, Pelvis Stable Back Exam: Reports: Normal Inspection, Full Range of Motion Extremities: Normal Inspection, Normal Range of Motion, Non-Tender, No Pedal Edema, Normal Capillary Refill Skin: Reports: Warm, Dry Neurological: Reports: No New Focal Deficit Psy/Mental Status: Reports: Alert, Normal Affect, Normal Mood *Q Meaningful Use (DIS) - VTE *Q VTE Criteria *Q: - Stroke *Q Stroke Criteria *Q: - AMI *Q AMI Criteria *Q:
[2017-11-24 09:23] VITALS: BP 90/55
[2017-11-24] MEDS: DULERA INH SCH (11:36)
--- NOTE | 2017-11-28 16:27 | CR ---
EXAMINATION: Oropharyngeal video swallow study. HISTORY: Dysphasia COMPARISON: None TECHNIQUE: Lateral images obtained, speech pathologist present, various barium consistencies provided . FINDINGS: There is adequate bolus formation and transfer. Epiglottic inversion and tracheal elevation is normal. There is penetration noted with thin liquids. This is possibly secondary to mild residue. Thicker consistencies are better tolerated. Residue along the inferior epiglottis appears to progres s on subsequent swallows. IMPRESSION: 1. Penetration noted on several consistencies. Please see speech pathology report for full details.
== END 2017-11-24 11:30 | DRG 178 ==
LOC: MW.ED 13:03 → MW.MS 16:59
PROVIDERS: ADMIT Internal Medicine; ATTEND Internal Medicine
DX: J69.0 Pneumonitis due to inhalation of food and vomit (principal); N39.0 Urinary tract infection, site not specified; R06.02 Shortness of breath; R47.81 Slurred speech; N17.9 Acute kidney failure, unspecified; J13 Pneumonia due to Streptococcus pneumoniae; R53.1 Weakness; M06.9 Rheumatoid arthritis, unspecified; K90.0 Celiac disease; T45.1X5A Adverse effect of antineoplastic and immunosuppressive drugs, initial encounter; R13.10 Dysphagia, unspecified; T50.8X5A Adverse effect of diagnostic agents, initial encounter; Y92.019 Unspecified place in single-family (private) house as the place of occurrence of the external cause; Z85.72 Personal history of non-Hodgkin lymphomas; Z79.899 Other long term (current) drug therapy; Z88.0 Allergy status to penicillin; Z88.2 Allergy status to sulfonamides; Z88.8 Allergy status to other drugs, medicaments and biological substances
CPT/HCPCS: 36415; 36600; 70450; 71010; 80053; 81001; 82803; 83880; 84484; 85025; 85610; 87040 ×2; 87077; 87086; 87186; 87804 ×2; 93005; 94640; 96361; 99285; A9270; J7040; 71250; 71250-26; 74176; 74176-26; 74230; 74230-26; 80048; 82272; 83735; 85027; 92507-GN; 92611-GN; 96360; 96365; 97110-GP; 97161-GP; 99284; J1644; J1956; J2185; J3370; J3475; J7030; J7050

== ENCOUNTER 2019-02-10 11:43 | Observation (INO) | payer MEDICARE, BC ==
[2019-02-10] MEDS ORDERED: Ondansetron 4 MG/2 ML SDV IVPUSH ONE (12:06)
--- NOTE | 2019-02-10 12:07 | EDM.PDOC ---
ED HPI GENERAL MEDICAL PROBLEM - General Chief Complaint: General Stated Complaint: UNK Time Seen by Provider: 02/10/19 12:07 Source of Information: Reports: Patient - History of Present Illness INITIAL COMMENTS - FREE TEXT/NARRATIVE: HISTORY AND PHYSICAL: History of present illness: [Patient presents with weakness and nausea or private vehicle Chest remote cancer history with radiation therapy She has been having difficulty with water and oral intake in general, she is scheduled for admission physical for [facility] on Monday No fever nausea vomiting chills sweats ] Review of systems: As per history of present illness and below otherwise all systems reviewed and negative. Past medical history: As per history of present illness and as reviewed below otherwise noncontributory. Surgical history: As per history of present illness and as reviewed below otherwise noncontributory. Social history: No reported history of drug or alcohol abuse. Family history: As per history of present illness and as reviewed below otherwise noncontributory. Physical exam: HEENT: Atraumatic, normocephalic, pupils reactive, negative for conjunctival pallor or scleral icterus, mucous membranes moist, throat clear, neck supple, nontender, trachea midline. Lungs: Clear to auscultation, breath sounds equal bilaterally, chest nontender. Heart: S1S2, regular, negative for clicks, rubs, or JVD. Abdomen: Soft, nondistended, nontender. Negative for masses or hepatosplenomegaly. Negative for costovertebral tenderness. Pelvis: Stable nontender. Genitourinary: Deferred. Rectal: Deferred. Extremities: Atraumatic, negative for cords or calf pain. Neurovascular unremarkable. Neuro: Awake, alert, oriented. Cranial nerves II through XII unremarkable. Cerebellum unremarkable. Motor and sensory unremarkable throughout. Exam nonfocal. Skin is dry with tenting Diagnostics: [CBC CMP UA troponin EKG Chest 1 view ] Therapeutics: [ normal saline Zofran ] Impression: Dehydration [ weakness/nausea ] Renal insufficiency Chronic history of baseline Definitive disposition and diagnosis as appropriate pending reevaluation and review of above. - Related Data Allergies Allergy/AdvReac Type Severity Reaction Status Date / Time cephalexin monohydrate Allergy Hives Verified 11/19/17 14:41 [From Keflex] ciprofloxacin [From Cipro] Allergy Other Verified 11/19/17 14:42 erythromycin base Allergy Hives Verified 11/19/17 14:41 gluten Allergy Stomach Verified 11/19/17 14:41 Ache Penicillins Allergy Hives Verified 11/19/17 14:41 Sulfa (Sulfonamide Allergy Hives Verified 11/19/17 14:41 Antibiotics) contrast Dye Allergy Hives Uncoded 11/19/17 14:41 tape adhesives (USE PAPER Allergy Swelling Uncoded 11/19/17 14:41 TAPE ONLY Home Meds: Home Meds . [No Known Home Meds] 02/10/19 [History] Past Medical History HEENT History: Reports: Hard of Hearing, Impaired Vision, Other (See Below) Other HEENT History: blurry vision and pain to left eye Cardiovascular History: Reports: Arrhythmia, High Cholesterol Respiratory History: Reports: Other (See Below) Other Respiratory History: Oxygen use at NOC at home Gastrointestinal History: Reports: Celiac Disease Genitourinary History: Reports: Urinary Incontinence, UTI, Recurrent Musculoskeletal History: Reports: Osteoporosis, RA Neurological History: Reports: None Psychiatric History: Reports: Anxiety, Depression Endocrine/Metabolic History: Reports: Hyperthyroidism, Osteoporosis Hematologic History: Reports: Anemia, Blood Transfusion(s) Oncologic (Cancer) History: Reports: Lymphoma, Other (See Below) Other Oncologic History: Walden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 feeding tube placement, no longer in place Female Surgical History: Reports: Hysterectomy Neurological Surgical History: Reports: None Musculoskeletal Surgical History: Reports: None Social & Family History - Family History Family Medical History: Noncontributory - Caffeine Use Caffeine Use: Reports: Coffee Other Caffeine Use: 1 cup per day ED ROS GENERAL - Review of Systems Review Of Systems: See Below ED EXAM, GENERAL - Physical Exam Exam: See Below Course - Vital Signs Last Recorded V/S: Last Vital Signs Temp 95.3 F L 02/10/19 12:02 Pulse 63 02/10/19 15:26 Resp 20 02/10/19 12:02 BP 107/69 02/10/19 15:26 Pulse Ox 95 02/10/19 15:26 - Orders/Labs/Meds Orders: Active Orders 24 hr Category Date Time Status EKG Documentation Completion [RC] STAT Care 02/10/19 12:06 Active Sodium Chloride 0.9% [Normal Saline] 1,000 ml Med 02/10/19 13:30 Active IV STAT Sodium Chloride 0.9% [Normal Saline] 500 ml Med 02/10/19 12:15 Active IV STAT Medication Orders Sodium Chloride (Normal Saline) 500 mls @ 999 mls/hr IV STAT APPLE Last Admin: 02/10/19 12:29 Dose: 999 mls/hr Sodium Chloride (Normal Saline) 1,000 mls @ 125 mls/hr IV STAT APPLE Last Admin: 02/10/19 14:25 Dose: 125 mls/hr Labs: Laboratory Tests 02/10/19 02/10/19 02/10/19 Range/Units 12:27 12:27 12:27 WBC 5.06 (4.0-11.0) K/uL RBC 4.94 (4.30-5.90) M/uL Hgb 13.6 (12.0-16.0) g/dL Hct 41.2 (36.0-46.0) % MCV 83.4 (80.0-98.0) fL MCH 27.5 (27.0-32.0) pg MCHC 33.0 (31.0-37.0) g/dL RDW Std Deviation 46.5 (28.0-62.0) fl RDW Coeff of Carina 15 (11.0-15.0) % Plt Count 166 (150-400) K/uL MPV 9.10 (7.40-12.00) fL Neut % (Auto) 48.6 (48.0-80.0) % Lymph % (Auto) 40.7 H (16.0-40.0) % [place] % (Auto) 8.7 (0.0-15.0) % Eos % (Auto) 1.8 (0.0-7.0) % Baso % (Auto) 0.2 (0.0-1.5) % Neut # (Auto) 2.5 (1.4-5.7) K/uL Lymph # (Auto) 2.1 (0.6-2.4) K/uL [place] # (Auto) 0.4 (0.0-0.8) K/uL Eos # (Auto) 0.1 (0.0-0.7) K/uL Baso # (Auto) 0.0 (0.0-0.1) K/uL Nucleated RBC % 0.0 /100WBC Nucleated RBCs # 0 K/uL Sodium 143 (136-145) mmol/L Potassium 3.2 L (3.5-5.1) mmol/L Chloride 106 (98-107) mmol/L Carbon Dioxide 23.3 (21.0-32.0) mmol/L BUN 53 H (7.0-18.0) mg/dL Creatinine 1.8 H (0.6-1.0) mg/dL Est Cr Clr Drug Dosing 10.62 mL/min Estimated GFR (MDRD) 26.5 ml/min Glucose 90 (74-106) mg/dL Calcium 11.8 H (8.5-10.1) mg/dL Total Bilirubin 0.9 (0.2-1.0) mg/dL AST 31 (15-37) IU/L ALT 32 (14-63) IU/L Alkaline Phosphatase 63 (46-116) U/L Creatine Kinase 17 L (26-308) U/L Troponin I < 0.050 (0.000-0.056) ng/mL Total Protein 8.0 (6.4-8.2) g/dL Albumin 2.4 L (3.4-5.0) g/dL Globulin 5.6 H (2.6-4.0) g/dL Albumin/Globulin Ratio 0.4 L (0.9-1.6) Urine Color Urine Appearance Urine pH (5.0-8.0) Ur Specific Confluence (1.001-1.035) Urine Protein (NEGATIVE) mg/dL Urine Glucose (UA) (NEGATIVE) mg/dL Urine Ketones (NEGATIVE) mg/dL Urine Occult Blood (NEGATIVE) Urine Nitrite (NEGATIVE) Urine Bilirubin (NEGATIVE) Urine Urobilinogen (<2.0) EU/dL Ur Leukocyte Esterase (NEGATIVE) Urine RBC (0-2/HPF) Urine WBC (0-5/HPF) Ur Epithelial Cells (NONE-FEW) Urine Bacteria (NEGATIVE) Urine Mucus (NONE-MOD) 02/10/19 Range/Units 13:52 WBC (4.0-11.0) K/uL RBC (4.30-5.90) M/uL Hgb (12.0-16.0) g/dL Hct (36.0-46.0) % MCV (80.0-98.0) fL MCH (27.0-32.0) pg MCHC (31.0-37.0) g/dL RDW Std Deviation (28.0-62.0) fl RDW Coeff of Carina (11.0-15.0) % Plt Count (150-400) K/uL MPV (7.40-12.00) fL Neut % (Auto) (48.0-80.0) % Lymph % (Auto) (16.0-40.0) % [place] % (Auto) (0.0-15.0) % Eos % (Auto) (0.0-7.0) % Baso % (Auto) (0.0-1.5) % Neut # (Auto) (1.4-5.7) K/uL Lymph # (Auto) (0.6-2.4) K/uL [place] # (Auto) (0.0-0.8) K/uL Eos # (Auto) (0.0-0.7) K/uL Baso # (Auto) (0.0-0.1) K/uL Nucleated RBC % /100WBC Nucleated RBCs # K/uL Sodium (136-145) mmol/L Potassium (3.5-5.1) mmol/L Chloride (98-107) mmol/L Carbon Dioxide (21.0-32.0) mmol/L BUN (7.0-18.0) mg/dL Creatinine (0.6-1.0) mg/dL Est Cr Clr Drug Dosing mL/min Estimated GFR (MDRD) ml/min Glucose (74-106) mg/dL Calcium (8.5-10.1) mg/dL Total Bilirubin (0.2-1.0) mg/dL AST (15-37) IU/L ALT (14-63) IU/L Alkaline Phosphatase (46-116) U/L Creatine Kinase (26-308) U/L Troponin I (0.000-0.056) ng/mL Total Protein (6.4-8.2) g/dL Albumin (3.4-5.0) g/dL Globulin (2.6-4.0) g/dL Albumin/Globulin Ratio (0.9-1.6) Urine Color YELLOW Urine Appearance SLT CLOUDY Urine pH 5.5 (5.0-8.0) Ur Specific [place] >= 1.030 (1.001-1.035) Urine Protein 30 H (NEGATIVE) mg/dL Urine Glucose (UA) NEGATIVE (NEGATIVE) mg/dL Urine Ketones NEGATIVE (NEGATIVE) mg/dL Urine Occult Blood NEGATIVE (NEGATIVE) Urine Nitrite NEGATIVE (NEGATIVE) Urine Bilirubin NEGATIVE (NEGATIVE) Urine Urobilinogen 0.2 (<2.0) EU/dL Ur Leukocyte Esterase NEGATIVE (NEGATIVE) Urine RBC 0-1 (0-2/HPF) Urine WBC 0-3 (0-5/HPF) Ur Epithelial Cells OCCASIONAL (NONE-FEW) Urine Bacteria FEW (NEGATIVE) Urine Mucus LIGHT (NONE-MOD) Meds: Medications Generic Name Dose Route Start Last Admin Trade Name Freq PRN Reason Stop Dose Admin Sodium Chloride 500 mls @ 999 mls/hr 02/10/19 12:15 02/10/19 12:29 Normal Saline IV 999 mls/hr STAT APPLE Administration Sodium Chloride 1,000 mls @ 125 mls/hr 02/10/19 13:30 02/10/19 14:25 Normal Saline IV 125 mls/hr STAT APPLE Administration Discontinued Medications Generic Name Dose Route Start Last Admin Trade Name Freq PRN Reason Stop Dose Admin Ondansetron HCl 4 mg 02/10/19 12:06 02/10/19 12:29 Zofran IVPUSH 02/10/19 12:07 4 mg ONETIME ONE Administration Departure - Departure Time of Disposition: 15:27 Disposition: Refer to Observation Condition: Fair Clinical Impression: Dehydration, Renal insufficiency - Discharge Information Forms: ED Department Discharge Additional Instructions: The following information is given to patients seen in the emergency department who are being discharged to home. This information is to outline your options for follow-up care. We provide all patients seen in our emergency department with a follow-up referral. The need for follow-up, as well as the timing and circumstances, are variable depending upon the specifics of your emergency department visit. If you don't have a primary care physician on staff, we will provide you with a referral. We always advise you to contact your personal physician following an emergency department visit to inform them of the circumstance of the visit and for follow-up with them and/or the need for any referrals to a consulting specialist. The emergency department will also refer you to a specialist when appropriate. This referral assures that you have the opportunity for follow-up care with a specialist. All of these measure are taken in an effort to provide you with optimal care, which includes your follow-up. Under all circumstances we always encourage you to contact your private physician who remains a resource for coordinating your care. When calling for follow-up care, please make the office aware that this follow-up is from your recent emergency room visit. If for any reason you are refused follow-up, please contact the [facility] emergency department at and asked to speak to the emergency department charge nurse. - My Orders Last 24 Hours: My Active Orders 02/10/19 12:06 EKG Documentation Completion [RC] STAT 02/10/19 12:15 Sodium Chloride 0.9% [Normal Saline] 500 ml IV STAT 02/10/19 13:30 Sodium Chloride 0.9% [Normal Saline] 1,000 ml IV STAT - Assessment/Plan Last 24 Hours: My Active Orders 02/10/19 12:06 EKG Documentation Completion [RC] STAT 02/10/19 12:15 Sodium Chloride 0.9% [Normal Saline] 500 ml IV STAT 02/10/19 13:30 Sodium Chloride 0.9% [Normal Saline] 1,000 ml IV STAT
[2019-02-10] MEDS ORDERED: Sodium Chloride 0.9% 500 ML IV SCH (12:15)
[2019-02-10 12:57] LABS: CHLORIDE,CL 106 mmol/L (98-107); SODIUM,NA 143 mmol/L (136-145)
[2019-02-10] MEDS ORDERED: Sodium Chloride 0.9% 1,000 ML IV SCH ×2 (13:30→16:30)
--- NOTE | 2019-02-10 13:44 | CR ---
Pain shortness breath Portable chest. No comparison studies are available. Findings: Mild prominence of the cardiac silhouette. No acute airspace or interstitial process seen. No effusion. Mild apical fibrotic change. IMPRESSION: 1. No acute pulmonary process. Dictated by Alia Barriga MD @ Feb 10 2019 1:40PM Signed by Dr. Alia Barriga @ Feb 10 2019 1:41PM
[2019-02-10] MEDS ORDERED: Morphine 2 MG/ML Syringe IVPUSH PRN (16:25)
--- NOTE | 2019-02-10 16:31 | PCM.HP ---
H&P History of Present Illness - General Date of Service: 02/10/19 Admit Problem/Dx: Admission Diagnosis/Problem Admission Diagnosis/Problem Dehydration Source of Information: Patient, Family History Limitations: Reports: No Limitations - History of Present Illness Initial Comments - Free Text/Narative: The patient is an 88-year-old lady who had presented to the emergency department with a complaint of weakness, fatigue and inability to swallow. The patient says that this is been going on for several months. 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 The patient had been given fluids in the emergency department. The patient has marked difficulty in swallowing and will cough after consuming small amounts of food or water. The patient has been on a mechanically soft diet usually just soft-boiled egg or yogurt. The patient has an appointment for [facility] intake Monday this week. The patient has had pain in her throat but no other pain. She's had no nausea or vomiting. Onset of Symptoms: Reports: Gradual Duration of Symptoms: Reports: Week(s):, Getting Worse Severity: Moderate Improves with: Reports: None Worsens with: Reports: Eating Associated Symptoms: Reports: No Other Symptoms - Related Data Allergies/Adverse Reactions: Allergies Allergy/AdvReac Type Severity Reaction Status Date / Time cephalexin monohydrate Allergy Hives Verified 11/19/17 14:41 [From Keflex] ciprofloxacin [From Cipro] Allergy Other Verified 11/19/17 14:42 erythromycin base Allergy Hives Verified 11/19/17 14:41 gluten Allergy Stomach Verified 11/19/17 14:41 Ache Penicillins Allergy Hives Verified 11/19/17 14:41 Sulfa (Sulfonamide Allergy Hives Verified 11/19/17 14:41 Antibiotics) contrast Dye Allergy Hives Uncoded 11/19/17 14:41 tape adhesives (USE PAPER Allergy Swelling Uncoded 11/19/17 14:41 TAPE ONLY Home Medications: Home Meds . [No Known Home Meds] 02/10/19 [History] Past Medical History HEENT History: Reports: Hard of Hearing, Impaired Vision, Other (See Below) Other HEENT History: blurry vision and pain to left eye Cardiovascular History: Reports: Arrhythmia, High Cholesterol Respiratory History: Reports: Other (See Below) Other Respiratory History: Oxygen use at NOC at home Gastrointestinal History: Reports: Celiac Disease Genitourinary History: Reports: Urinary Incontinence, UTI, Recurrent Musculoskeletal History: Reports: Osteoporosis, RA Neurological History: Reports: None Psychiatric History: Reports: Anxiety, Depression Endocrine/Metabolic History: Reports: Hyperthyroidism, Osteoporosis Hematologic History: Reports: Anemia, Blood Transfusion(s) Oncologic (Cancer) History: Reports: Lymphoma, Other (See Below) Other Oncologic History: Walden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 feeding tube placement, no longer in place Female Surgical History: Reports: Hysterectomy Neurological Surgical History: Reports: None Musculoskeletal Surgical History: Reports: None Social & Family History - Family History Family Medical History: Noncontributory - Tobacco Use Smoking Status *Q: Never Smoker - Caffeine Use Caffeine Use: Reports: Coffee Other Caffeine Use: 1 cup per day - Recreational Drug Use Recreational Drug Use: No H&P Review of Systems - Review of Systems: Review Of Systems: See Below General: Reports: Weakness, Fatigue, Decreased Appetite HEENT: Reports: No Symptoms Pulmonary: Reports: No Symptoms Cardiovascular: Reports: No Symptoms Gastrointestinal: Reports: Anorexia, Decreased Appetite Genitourinary: Reports: No Symptoms Musculoskeletal: Reports: No Symptoms Skin: Reports: No Symptoms Psychiatric: Reports: No Symptoms Neurological: Reports: No Symptoms Hematologic/Lymphatic: Reports: No Symptoms Immunologic: Reports: No Symptoms Exam - Exam Exam: See Below - Vital Signs Vital Signs: Last Vital Signs Temp 35.2 C L 02/10/19 12:02 Pulse 63 02/10/19 15:26 Resp 20 02/10/19 12:02 BP 107/69 02/10/19 15:26 Pulse Ox 95 02/10/19 15:26 Weight: 31.751 kg - Exam Quality Assessment: No: Supplemental Oxygen General: Alert, Oriented, Cooperative, Mild Distress, Other (Cachexia) HEENT: Conjunctiva Clear, EACs Clear, PERRLA. No: Mucosa Moist & [place] (Dry) Neck: Supple (Thin), Trachea Midline Lungs: Rales (Bibasilar) Cardiovascular: Regular Rate, Regular Rhythm GI/Abdominal Exam: Soft, Non-Tender, No Distention. No: Normal Bowel Sounds ( Hypoactive), Guarding, Rigid (Female) Exam: Deferred Rectal (Female) Exam: Deferred Back Exam: No: Normal Inspection (Mild kyphosis) Extremities: Normal Inspection, No Pedal Edema Skin: Warm, Dry, Intact Neurological: Cranial Nerves Intact Neuro Extensive - Mental Status: Alert, Oriented x3 Psychiatric: Alert, Normal Affect, Normal Mood - Patient Data Lab Results Last 24 hrs: Laboratory Results - last 24 hr 02/10/19 02/10/19 02/10/19 Range/Units 12:27 12:27 12:27 WBC 5.06 (4.0-11.0) K/uL RBC 4.94 (4.30-5.90) M/uL Hgb 13.6 (12.0-16.0) g/dL Hct 41.2 (36.0-46.0) % MCV 83.4 (80.0-98.0) fL MCH 27.5 (27.0-32.0) pg MCHC 33.0 (31.0-37.0) g/dL RDW Std Deviation 46.5 (28.0-62.0) fl RDW Coeff of Carina 15 (11.0-15.0) % Plt Count 166 (150-400) K/uL MPV 9.10 (7.40-12.00) fL Neut % (Auto) 48.6 (48.0-80.0) % Lymph % (Auto) 40.7 H (16.0-40.0) % [place] % (Auto) 8.7 (0.0-15.0) % Eos % (Auto) 1.8 (0.0-7.0) % Baso % (Auto) 0.2 (0.0-1.5) % Neut # (Auto) 2.5 (1.4-5.7) K/uL Lymph # (Auto) 2.1 (0.6-2.4) K/uL [place] # (Auto) 0.4 (0.0-0.8) K/uL Eos # (Auto) 0.1 (0.0-0.7) K/uL Baso # (Auto) 0.0 (0.0-0.1) K/uL Nucleated RBC % 0.0 /100WBC Nucleated RBCs # 0 K/uL Sodium 143 (136-145) mmol/L Potassium 3.2 L (3.5-5.1) mmol/L Chloride 106 (98-107) mmol/L Carbon Dioxide 23.3 (21.0-32.0) mmol/L BUN 53 H (7.0-18.0) mg/dL Creatinine 1.8 H (0.6-1.0) mg/dL Est Cr Clr Drug Dosing 10.62 mL/min Estimated GFR (MDRD) 26.5 ml/min Glucose 90 (74-106) mg/dL Calcium 11.8 H (8.5-10.1) mg/dL Total Bilirubin 0.9 (0.2-1.0) mg/dL AST 31 (15-37) IU/L ALT 32 (14-63) IU/L Alkaline Phosphatase 63 (46-116) U/L Creatine Kinase 17 L (26-308) U/L Troponin I < 0.050 (0.000-0.056) ng/mL Total Protein 8.0 (6.4-8.2) g/dL Albumin 2.4 L (3.4-5.0) g/dL Globulin 5.6 H (2.6-4.0) g/dL Albumin/Globulin Ratio 0.4 L (0.9-1.6) Urine Color Urine Appearance Urine pH (5.0-8.0) Ur Specific [place] (1.001-1.035) Urine Protein (NEGATIVE) mg/dL Urine Glucose (UA) (NEGATIVE) mg/dL Urine Ketones (NEGATIVE) mg/dL Urine Occult Blood (NEGATIVE) Urine Nitrite (NEGATIVE) Urine Bilirubin (NEGATIVE) Urine Urobilinogen (<2.0) EU/dL Ur Leukocyte Esterase (NEGATIVE) Urine RBC (0-2/HPF) Urine WBC (0-5/HPF) Ur Epithelial Cells (NONE-FEW) Urine Bacteria (NEGATIVE) Urine Mucus (NONE-MOD) 02/10/19 Range/Units 13:52 WBC (4.0-11.0) K/uL RBC (4.30-5.90) M/uL Hgb (12.0-16.0) g/dL Hct (36.0-46.0) % MCV (80.0-98.0) fL MCH (27.0-32.0) pg MCHC (31.0-37.0) g/dL RDW Std Deviation (28.0-62.0) fl RDW Coeff of Carina (11.0-15.0) % Plt Count (150-400) K/uL MPV (7.40-12.00) fL Neut % (Auto) (48.0-80.0) % Lymph % (Auto) (16.0-40.0) % [place] % (Auto) (0.0-15.0) % Eos % (Auto) (0.0-7.0) % Baso % (Auto) (0.0-1.5) % Neut # (Auto) (1.4-5.7) K/uL Lymph # (Auto) (0.6-2.4) K/uL [place] # (Auto) (0.0-0.8) K/uL Eos # (Auto) (0.0-0.7) K/uL Baso # (Auto) (0.0-0.1) K/uL Nucleated RBC % /100WBC Nucleated RBCs # K/uL Sodium (136-145) mmol/L Potassium (3.5-5.1) mmol/L Chloride (98-107) mmol/L Carbon Dioxide (21.0-32.0) mmol/L BUN (7.0-18.0) mg/dL Creatinine (0.6-1.0) mg/dL Est Cr Clr Drug Dosing mL/min Estimated GFR (MDRD) ml/min Glucose (74-106) mg/dL Calcium (8.5-10.1) mg/dL Total Bilirubin (0.2-1.0) mg/dL AST (15-37) IU/L ALT (14-63) IU/L Alkaline Phosphatase (46-116) U/L Creatine Kinase (26-308) U/L Troponin I (0.000-0.056) ng/mL Total Protein (6.4-8.2) g/dL Albumin (3.4-5.0) g/dL Globulin (2.6-4.0) g/dL Albumin/Globulin Ratio (0.9-1.6) Urine Color YELLOW Urine Appearance SLT CLOUDY Urine pH 5.5 (5.0-8.0) Ur Specific [place] >= 1.030 (1.001-1.035) Urine Protein 30 H (NEGATIVE) mg/dL Urine Glucose (UA) NEGATIVE (NEGATIVE) mg/dL Urine Ketones NEGATIVE (NEGATIVE) mg/dL Urine Occult Blood NEGATIVE (NEGATIVE) Urine Nitrite NEGATIVE (NEGATIVE) Urine Bilirubin NEGATIVE (NEGATIVE) Urine Urobilinogen 0.2 (<2.0) EU/dL Ur Leukocyte Esterase NEGATIVE (NEGATIVE) Urine RBC 0-1 (0-2/HPF) Urine WBC 0-3 (0-5/HPF) Ur Epithelial Cells OCCASIONAL (NONE-FEW) Urine Bacteria FEW (NEGATIVE) Urine Mucus LIGHT (NONE-MOD) Result Diagrams: 02/10/19 12:27 02/10/19 12:27 *Q Meaningful Use (ADM) - VTE *Q VTE Mechanical Contraindications *Q: At Risk for Falls - Problem List (1) Dehydration SNOMED Code(s): 98352564 ICD Code: E86.0 - DEHYDRATION Status: Acute Priority: High Current Visit: Yes (2) Severe protein-calorie malnutrition SNOMED Code(s): 733031283, 302075500, 562834210 ICD Code: E43 - UNSPECIFIED SEVERE PROTEIN-CALORIE MALNUTRITION Status: Chronic Priority: High Current Visit: Yes (3) Renal insufficiency SNOMED Code(s): 704756766, 029967833 ICD Code: N28.9 - DISORDER OF KIDNEY AND URETER, UNSPECIFIED Status: Acute Priority: High Current Visit: Yes (4) General weakness SNOMED Code(s): 45353355 ICD Code: R53.1 - WEAKNESS Status: Chronic Priority: High Current Visit : Yes (5) Hx of lymphoma SNOMED Code(s): 879054821 ICD Code: Z85.72 - PERSONAL HISTORY OF NON-HODGKIN LYMPHOMAS Status: Chronic Priority: Medium Current Visit: Yes (6) Dysphagia SNOMED Code(s): 25324463, 585925311 ICD Code: R13.10 - DYSPHAGIA, UNSPECIFIED Status: Acute Priority: Medium Current Visit: Yes Qualifiers: Dysphagia type: esophageal phase Qualified Code(s): R13.10 - Dysphagia, unspecified Problem List Initiated/Reviewed/Updated: Yes Orders Last 24hrs: Active Orders 24 hr Category Date Time Status Admission Status [Patient Status] [ADT] Stat ADT 02/10/19 15:27 Active Antiembolic Devices [RC] PER UNIT ROUTINE Care 02/10/19 16:27 Ordered Bedrest Bedside Commode [RC] ASDIRECTED Care 02/10/19 16:25 Ordered EKG Documentation Completion [RC] STAT Care 02/10/19 12:06 Active VTE/DVT Education [RC] PER UNIT ROUTINE Care 02/10/19 16:25 Ordered Vital Signs [RC] Q8H Care 02/10/19 16:25 Ordered Consult to Hospice [CONS] Routine Cons 02/10/19 16:25 Ordered OT Evaluation and Treatment [CONS] Routine Cons 02/10/19 16:25 Ordered PT Evaluation and Treatment [CONS] Routine Cons 02/10/19 16:25 Ordered Mechanical Soft Diet [DIET] Diet 02/10/19 Breakfast Ordered MAGNESIUM [CHEM] AM Lab 02/11/19 05:11 Ordered Morphine Med 02/10/19 16:25 Ordered 1 mg IVPUSH Q2H PRN Ondansetron [Zofran] Med 02/10/19 16:30 Ordered 4 mg IVPUSH Q6H Sodium Chloride 0.9% [Normal Saline] 1,000 ml Med 02/10/19 16:30 Ordered IV ASDIRECTED Sodium Chloride 0.9% [Normal Saline] 1,000 ml Med 02/10/19 13:30 Active IV STAT Sodium Chloride 0.9% [Normal Saline] 500 ml Med 02/10/19 12:15 Active IV STAT Antiembolic Hose [OM.PC] Per Unit Routine Oth 02/10/19 16:26 Ordered VTE Mechanical Contraindications [AST] Per Unit Routine Oth 02/10/19 16:25 Ordered Resuscitation Status Routine Resus Stat 02/10/19 16:25 Ordered Medication Orders Sodium Chloride (Normal Saline) 500 mls @ 999 mls/hr IV STAT APPLE Last Admin: 02/10/19 12:29 Dose: 999 mls/hr Sodium Chloride (Normal Saline) 1,000 mls @ 125 mls/hr IV STAT APPLE Last Admin: 02/10/19 14:25 Dose: 125 mls/hr Sodium Chloride (Normal Saline) 1,000 mls @ 100 mls/hr IV ASDIRECTED APPLE Morphine Sulfate (Morphine) 1 mg IVPUSH Q2H PRN PRN Reason: Pain (severe 7-10) Stop: 02/11/19 16:27 Ondansetron HCl (Zofran) 4 mg IVPUSH Q6H [facility] Assessment/Plan Comment:: The patient is an 88-year-old lady who is chronically ill with a number of medical issues mostly related to her previous radiation and chemotherapy for her Hodgkin's lymphoma. The patient has been unable secondary to her dysphagia to maintain adequate calorie intake or hydration. The patient is severely dehydrated and shows signs of severe protein calorie malnutrition. Most the time the patient has been able to consume only soft foods. The patient will be fluid resuscitated gently with the use of IV normal saline. I've also ordered that the patient have vital signs monitored and this will help with her fluid status. The patient is currently pending an evaluation intake is [facility] on Monday and this should be kept. I've also ordered repeat laboratory studies for the morning. The patient will also be kept on DVT prophylaxis with the use of antiembolic stockings. The patient has been encouraged to ambulate to the best of her ability.
--- NOTE | 2019-02-10 22:03 | PCM.SN ---
- Free Text/Narrative Note: CALLED TO PLACE [facility] ON DIFFICULT ACCESS PATIENT. ATTEMPTED X2 R WRIST, [address] fa.
[2019-02-10] MEDS: Ondansetron 4 MG/2 ML SDV IVPUSH SCH (23:07)
[2019-02-11] MEDS: Ondansetron 4 MG/2 ML SDV IVPUSH SCH ×2 (04:19→10:13)
--- NOTE | 2019-02-11 09:09 | PCM.PN ---
<Sweta Terrazas M - Last Filed: 02/11/19 10:16> - General Info Date of Service: 02/11/19 Admission Dx/Problem (Free Text): Admission Diagnosis/Problem Admission Diagnosis/Problem Dehydration Subjective Update: Sitting in bed this morning, took a drink of milk, coughing and trouble with swallowing noted. Denies any pain. Requesting daughters be here to speak with me Daughters arrived, spoke with Yani and Zainab regarding [facility] and Hospice care. They are willing to speak with Hospice regarding how they can assistance patient. Daniela requests no further IV pokes or lab pokes. She and family have spoke about feeding tube and they would not want this. They also do not want PICC line to be placed either. Functional Status: Reports: Pain Controlled, Ambulating, Urinating. Denies: Tolerating Diet - Review of Systems General: Reports: Weakness, Fatigue HEENT: Reports: No Symptoms. Denies: Headaches, Sore Throat, Visual Changes Pulmonary: Reports: No Symptoms. Denies: Shortness of Breath Cardiovascular: Reports: No Symptoms. Denies: Chest Pain Gastrointestinal: Reports: No Symptoms. Denies: Abdominal Pain, Nausea, Vomiting Genitourinary: Reports: No Symptoms. Denies: Dysuria, Frequency, Burning Musculoskeletal: Reports: Other (requests waffle mattress pad due to pain in butt while laying in bed) Neurological: Reports: No Symptoms Psychiatric: Reports: No Symptoms - Patient Data Vitals - Most Recent: Last Vital Signs Temp 96.5 F 02/11/19 03:14 Pulse 67 02/11/19 03:14 Resp 19 02/11/19 03:14 BP 104/57 L 02/11/19 03:14 Pulse Ox 96 02/11/19 03:14 Weight - Most Recent: 31.751 kg I&O - Last 24 Hours: Intake & Output 02/10/19 02/11/19 02/11/19 22:59 06:59 14:59 Intake Total 880 Output Total 400 Balance 480 Lab Results Last 24 Hours: Laboratory Results - last 24 hr 02/10/19 02/10/19 02/10/19 Range/Units 12:27 12:27 12:27 WBC 5.06 (4.0-11.0) K/uL RBC 4.94 (4.30-5.90) M/uL Hgb 13.6 (12.0-16.0) g/dL Hct 41.2 (36.0-46.0) % MCV 83.4 (80.0-98.0) fL MCH 27.5 (27.0-32.0) pg MCHC 33.0 (31.0-37.0) g/dL RDW Std Deviation 46.5 (28.0-62.0) fl RDW Coeff of Carina 15 (11.0-15.0) % Plt Count 166 (150-400) K/uL MPV 9.10 (7.40-12.00) fL Neut % (Auto) 48.6 (48.0-80.0) % Lymph % (Auto) 40.7 H (16.0-40.0) % Emery % (Auto) 8.7 (0.0-15.0) % Eos % (Auto) 1.8 (0.0-7.0) % Baso % (Auto) 0.2 (0.0-1.5) % Neut # (Auto) 2.5 (1.4-5.7) K/uL Lymph # (Auto) 2.1 (0.6-2.4) K/uL Emery # (Auto) 0.4 (0.0-0.8) K/uL Eos # (Auto) 0.1 (0.0-0.7) K/uL Baso # (Auto) 0.0 (0.0-0.1) K/uL Nucleated RBC % 0.0 /100WBC Nucleated RBCs # 0 K/uL Sodium 143 (136-145) mmol/L Potassium 3.2 L (3.5-5.1) mmol/L Chloride 106 (98-107) mmol/L Carbon Dioxide 23.3 (21.0-32.0) mmol/L BUN 53 H (7.0-18.0) mg/dL Creatinine 1.8 H (0.6-1.0) mg/dL Est Cr Clr Drug Dosing 10.62 mL/min Estimated GFR (MDRD) 26.5 ml/min Glucose 90 (74-106) mg/dL Calcium 11.8 H (8.5-10.1) mg/dL Magnesium (1.8-2.4) mg/dL Total Bilirubin 0.9 (0.2-1.0) mg/dL AST 31 (15-37) IU/L ALT 32 (14-63) IU/L Alkaline Phosphatase 63 (46-116) U/L Creatine Kinase 17 L (26-308) U/L Troponin I < 0.050 (0.000-0.056) ng/mL Total Protein 8.0 (6.4-8.2) g/dL Albumin 2.4 L (3.4-5.0) g/dL Globulin 5.6 H (2.6-4.0) g/dL Albumin/Globulin Ratio 0.4 L (0.9-1.6) Urine Color Urine Appearance Urine pH (5.0-8.0) Ur Specific [place] (1.001-1.035) Urine Protein (NEGATIVE) mg/dL Urine Glucose (UA) (NEGATIVE) mg/dL Urine Ketones (NEGATIVE) mg/dL Urine Occult Blood (NEGATIVE) Urine Nitrite (NEGATIVE) Urine Bilirubin (NEGATIVE) Urine Urobilinogen (<2.0) EU/dL Ur Leukocyte Esterase (NEGATIVE) Urine RBC (0-2/HPF) Urine WBC (0-5/HPF) Ur Epithelial Cells (NONE-FEW) Urine Bacteria (NEGATIVE) Urine Mucus (NONE-MOD) 02/10/19 02/11/19 02/11/19 Range/Units 13:52 06:27 06:27 WBC 5.71 (4.0-11.0) K/uL RBC 4.17 L (4.30-5.90) M/uL Hgb 11.6 L (12.0-16.0) g/dL Hct 35.1 L (36.0-46.0) % MCV 84.2 (80.0-98.0) fL MCH 27.8 (27.0-32.0) pg MCHC 33.0 (31.0-37.0) g/dL RDW Std Deviation 47.0 (28.0-62.0) fl RDW Coeff of Carina 15 (11.0-15.0) % Plt Count 151 (150-400) K/uL MPV 8.90 (7.40-12.00) fL Neut % (Auto) 56.9 (48.0-80.0) % Lymph % (Auto) 34.3 (16.0-40.0) % Emery % (Auto) 6.3 (0.0-15.0) % Eos % (Auto) 2.3 (0.0-7.0) % Baso % (Auto) 0.2 (0.0-1.5) % Neut # (Auto) 3.3 (1.4-5.7) K/uL Lymph # (Auto) 2.0 (0.6-2.4) K/uL Emery # (Auto) 0.4 (0.0-0.8) K/uL Eos # (Auto) 0.1 (0.0-0.7) K/uL Baso # (Auto) 0.0 (0.0-0.1) K/uL Nucleated RBC % 0.0 /100WBC Nucleated RBCs # 0 K/uL Sodium 143 (136-145) mmol/L Potassium 3.1 L (3.5-5.1) mmol/L Chloride 111 H (98-107) mmol/L Carbon Dioxide 18.2 L (21.0-32.0) mmol/L BUN 43 H (7.0-18.0) mg/dL Creatinine 1.5 H (0.6-1.0) mg/dL Est Cr Clr Drug Dosing 12.74 mL/min Estimated GFR (MDRD) 32.7 ml/min Glucose 68 L (74-106) mg/dL Calcium 10.0 (8.5-10.1) mg/dL Magnesium 2.2 (1.8-2.4) mg/dL Total Bilirubin 0.8 (0.2-1.0) mg/dL AST 27 (15-37) IU/L ALT 25 (14-63) IU/L Alkaline Phosphatase 51 (46-116) U/L Creatine Kinase (26-308) U/L Troponin I (0.000-0.056) ng/mL Total Protein 6.4 (6.4-8.2) g/dL Albumin 1.9 L (3.4-5.0) g/dL Globulin 4.5 H (2.6-4.0) g/dL Albumin/Globulin Ratio 0.4 L (0.9-1.6) Urine Color YELLOW Urine Appearance SLT CLOUDY Urine pH 5.5 (5.0-8.0) Ur Specific [place] >= 1.030 (1.001-1.035) Urine Protein 30 H (NEGATIVE) mg/dL Urine Glucose (UA) NEGATIVE (NEGATIVE) mg/dL Urine Ketones NEGATIVE (NEGATIVE) mg/dL Urine Occult Blood NEGATIVE (NEGATIVE) Urine Nitrite NEGATIVE (NEGATIVE) Urine Bilirubin NEGATIVE (NEGATIVE) Urine Urobilinogen 0.2 (<2.0) EU/dL Ur Leukocyte Esterase NEGATIVE (NEGATIVE) Urine RBC 0-1 (0-2/HPF) Urine WBC 0-3 (0-5/HPF) Ur Epithelial Cells OCCASIONAL (NONE-FEW) Urine Bacteria FEW (NEGATIVE) Urine Mucus LIGHT (NONE-MOD) Med Orders - Current: Current Medications Sodium Chloride (Normal Saline) 500 mls @ 999 mls/hr IV STAT [facility] Last Admin: 02/10/19 12:29 Dose: 999 mls/hr Sodium Chloride (Normal Saline) 1,000 mls @ 125 mls/hr IV STAT [facility] Last Admin: 02/10/19 14:25 Dose: 125 mls/hr Sodium Chloride (Normal Saline) 1,000 mls @ 100 mls/hr IV ASDIRECTED [facility] Last Admin: 02/11/19 03:09 Dose: 100 mls/hr Morphine Sulfate (Morphine) 1 mg IVPUSH Q2H PRN PRN Reason: Pain (severe 7-10) Stop: 02/11/19 16:27 Ondansetron HCl (Zofran) 4 mg IVPUSH Q6H [facility] Last Admin: 02/11/19 04:19 Dose: 4 mg Discontinued Medications Ondansetron HCl (Zofran) 4 mg IVPUSH ONETIME ONE Stop: 02/10/19 12:07 Last Admin: 02/10/19 12:29 Dose: 4 mg - Exam General: Alert, Oriented, Cooperative, No Acute Distress, Other (severely cachetic in appearance.) HEENT: Other ([place]) Lungs: Rhonchi (upper rhonchi post swallowing, clears with coughing) Cardiovascular: Regular Rate, Regular Rhythm, No Murmurs GI/Abdominal Exam: Normal Bowel Sounds, Soft, Non-Tender Extremities: Normal Inspection, Normal Range of Motion, Non-Tender, No Pedal Edema Skin: Warm, Dry Neurological: No New Focal Deficit Psy/Mental Status: Alert, Normal Affect, Normal Mood - Problem List & Annotations (1) Palliative care status SNOMED Code(s): 665664964 Code(s): Z51.5 - ENCOUNTER FOR PALLIATIVE CARE Status: Acute Current Visit: Yes (2) Dehydration SNOMED Code(s): 18201188 Code(s): E86.0 - DEHYDRATION Status: Acute Priority: High Current Visit : Yes (3) Dysphagia SNOMED Code(s): 33237648, 666470015 Code(s): R13.10 - DYSPHAGIA, UNSPECIFIED Status: Acute Priority: Medium Current Visit: Yes Qualifiers: Dysphagia type: esophageal phase Qualified Code(s): R13.10 - Dysphagia, unspecified (4) General weakness SNOMED Code(s): 98724312 Code(s): R53.1 - WEAKNESS Status: Chronic Priority: High Current Visit : Yes (5) NIDIA (acute kidney injury) SNOMED Code(s): 94601799 Code(s): N17.9 - ACUTE KIDNEY FAILURE, UNSPECIFIED Status: Acute Current Visit: No (6) Renal insufficiency SNOMED Code(s): 115093868, 310063920 Code(s): N28.9 - DISORDER OF KIDNEY AND URETER, UNSPECIFIED Status: Chronic Priority: High Current Visit: Yes (7) Severe protein-calorie malnutrition SNOMED Code(s): 788166148, 181012835, 953724011 Code(s): E43 - UNSPECIFIED SEVERE PROTEIN-CALORIE MALNUTRITION Status: Chronic Priority: High Current Visit: Yes (8) Hx of rheumatoid arthritis SNOMED Code(s): 584755397 Code(s): Z87.39 - PERSONAL HISTORY OF DISEASES OF THE MS SYS AND CONN TISS Status: Chronic Current Visit: No (9) Hx of head and neck radiation SNOMED Code(s): 350991105 Code(s): Z92.3 - PERSONAL HISTORY OF IRRADIATION Status: Chronic Current Visit: Yes - Problem List Review Problem List Initiated/Reviewed/Updated: Yes - Plan Plan:: This 88 year old female admitted with dehydration and INDIA secondary to limited oral intake due to long standing dysphagia 1. Dehydration: Slightly improved. IV access lost this morning. Daniela is declining any further IV attempts. Understands she is at high risk for worsening dehydration and renal injury. Daughter at bedside, agrees with Daniela and they do not want large IV such as PICC line placed or feeding tube. 2. 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 Continues to drink some fluids, but is unable to eat or drink amount of calorie to sustain hydration status. Spoke with Daniela and daughters about Hospice, they would like to speak with them, but are unsure if they will accept. Currently palliative measures due to dysphagia. Continue with mechanical soft diet and protein drinks as tolerates. 3. Generalized weakness: PT/OT consulted, but patient declined them this morning. VTE prophylaxis: SCDs Dispo: Plan was to have [facility] intake tomorrow with Dr Matt. She will be able to enter [facility] at the earliest tomorrow without seeing Dr Matt. I have called and left a message with Dr Matt regarding current admission and plans to consult Hospice. Will keep him updated on treatment plan and transfer to [facility]. <Ben Rosario - Last Filed: 02/11/19 15:07> - General Info Admission Dx/Problem (Free Text): I have seen and examined the patient independently of Sweta Terrazas CNP. I have discussed the case with her. I have reviewed and agree with the assessment and plan of care for the patient as outlined by her. Please see orders. - Patient Data Vitals - Most Recent: Last Vital Signs Temp 35.8 C 02/11/19 03:14 Pulse 67 02/11/19 03:14 Resp 19 02/11/19 03:14 BP 104/57 L 02/11/19 03:14 Pulse Ox 96 02/11/19 03:14 I&O - Last 24 Hours: Intake & Output 02/11/19 02/11/19 02/11/19 06:59 14:59 22:59 Intake Total 880 Output Total 400 Balance 480 Lab Results Last 24 Hours: Laboratory Results - last 24 hr 02/10/19 02/11/19 02/11/19 Range/Units 13:52 06:27 06:27 WBC 5.71 (4.0-11.0) K/uL RBC 4.17 L (4.30-5.90) M/uL Hgb 11.6 L (12.0-16.0) g/dL Hct 35.1 L (36.0-46.0) % MCV 84.2 (80.0-98.0) fL MCH 27.8 (27.0-32.0) pg MCHC 33.0 (31.0-37.0) g/dL RDW Std Deviation 47.0 (28.0-62.0) fl RDW Coeff of Carina 15 (11.0-15.0) % Plt Count 151 (150-400) K/uL MPV 8.90 (7.40-12.00) fL Neut % (Auto) 56.9 (48.0-80.0) % Lymph % (Auto) 34.3 (16.0-40.0) % Emery % (Auto) 6.3 (0.0-15.0) % Eos % (Auto) 2.3 (0.0-7.0) % Baso % (Auto) 0.2 (0.0-1.5) % Neut # (Auto) 3.3 (1.4-5.7) K/uL Lymph # (Auto) 2.0 (0.6-2.4) K/uL Emery # (Auto) 0.4 (0.0-0.8) K/uL Eos # (Auto) 0.1 (0.0-0.7) K/uL Baso # (Auto) 0.0 (0.0-0.1) K/uL Nucleated RBC % 0.0 /100WBC Nucleated RBCs # 0 K/uL Sodium 143 (136-145) mmol/L Potassium 3.1 L (3.5-5.1) mmol/L Chloride 111 H (98-107) mmol/L Carbon Dioxide 18.2 L (21.0-32.0) mmol/L BUN 43 H (7.0-18.0) mg/dL Creatinine 1.5 H (0.6-1.0) mg/dL Est Cr Clr Drug Dosing 12.74 mL/min Estimated GFR (MDRD) 32.7 ml/min Glucose 68 L (74-106) mg/dL POC Glucose (60-110) mg/dL Calcium 10.0 (8.5-10.1) mg/dL Magnesium 2.2 (1.8-2.4) mg/dL Total Bilirubin 0.8 (0.2-1.0) mg/dL AST 27 (15-37) IU/L ALT 25 (14-63) IU/L Alkaline Phosphatase 51 (46-116) U/L Total Protein 6.4 (6.4-8.2) g/dL Albumin 1.9 L (3.4-5.0) g/dL Globulin 4.5 H (2.6-4.0) g/dL Albumin/Globulin Ratio 0.4 L (0.9-1.6) Urine RBC 0-1 (0-2/HPF) Urine WBC 0-3 (0-5/HPF) Ur Epithelial Cells OCCASIONAL (NONE-FEW) Urine Bacteria FEW (NEGATIVE) Urine Mucus LIGHT (NONE-MOD) 02/11/19 Range/Units 08:07 WBC (4.0-11.0) K/uL RBC (4.30-5.90) M/uL Hgb (12.0-16.0) g/dL Hct (36.0-46.0) % MCV (80.0-98.0) fL MCH (27.0-32.0) pg MCHC (31.0-37.0) g/dL RDW Std Deviation (28.0-62.0) fl RDW Coeff of Carina (11.0-15.0) % Plt Count (150-400) K/uL MPV (7.40-12.00) fL Neut % (Auto) (48.0-80.0) % Lymph % (Auto) (16.0-40.0) % Emery % (Auto) (0.0-15.0) % Eos % (Auto) (0.0-7.0) % Baso % (Auto) (0.0-1.5) % Neut # (Auto) (1.4-5.7) K/uL Lymph # (Auto) (0.6-2.4) K/uL Emery # (Auto) (0.0-0.8) K/uL Eos # (Auto) (0.0-0.7) K/uL Baso # (Auto) (0.0-0.1) K/uL Nucleated RBC % /100WBC Nucleated RBCs # K/uL Sodium (136-145) mmol/L Potassium (3.5-5.1) mmol/L Chloride (98-107) mmol/L Carbon Dioxide (21.0-32.0) mmol/L BUN (7.0-18.0) mg/dL Creatinine (0.6-1.0) mg/dL Est Cr Clr Drug Dosing mL/min Estimated GFR (MDRD) ml/min Glucose (74-106) mg/dL POC Glucose 66 (60-110) mg/dL Calcium (8.5-10.1) mg/dL Magnesium (1.8-2.4) mg/dL Total Bilirubin (0.2-1.0) mg/dL AST (15-37) IU/L ALT (14-63) IU/L Alkaline Phosphatase (46-116) U/L Total Protein (6.4-8.2) g/dL Albumin (3.4-5.0) g/dL Globulin (2.6-4.0) g/dL Albumin/Globulin Ratio (0.9-1.6) Urine RBC (0-2/HPF) Urine WBC (0-5/HPF) Ur Epithelial Cells (NONE-FEW) Urine Bacteria (NEGATIVE) Urine Mucus (NONE-MOD) Med Orders - Current: Current Medications Acetaminophen (Tylenol) 650 mg RECTAL Q4H PRN PRN Reason: Pain Acetaminophen (Tylenol) 650 mg PO Q4H PRN PRN Reason: Pain Ondansetron HCl (Zofran Odt) 4 mg PO Q4H PRN PRN Reason: Nausea/Vomiting Discontinued Medications Sodium Chloride (Normal Saline) 500 mls @ 999 mls/hr IV STAT [facility] Last Admin: 02/10/19 12:29 Dose: 999 mls/hr Sodium Chloride (Normal Saline) 1,000 mls @ 125 mls/hr IV STAT [facility] Last Admin: 02/10/19 14:25 Dose: 125 mls/hr Sodium Chloride (Normal Saline) 1,000 mls @ 100 mls/hr IV ASDIRECTED [facility] Last Admin: 02/11/19 03:09 Dose: 100 mls/hr Morphine Sulfate (Morphine) 1 mg IVPUSH Q2H PRN PRN Reason: Pain (severe 7-10) Stop: 02/11/19 16:27 Ondansetron HCl (Zofran) 4 mg IVPUSH ONETIME ONE Stop: 02/10/19 12:07 Last Admin: 02/10/19 12:29 Dose: 4 mg Ondansetron HCl (Zofran) 4 mg IVPUSH Q6H [facility] Last Admin: 02/11/19 10:13 Dose: Not Given - Problem List & Annotations (1) Dehydration SNOMED Code(s): 77077951 Code(s): E86.0 - DEHYDRATION Status: Acute Priority: High Current Visit : Yes (2) Severe protein-calorie malnutrition SNOMED Code(s): 640297153, 247811532, 701448028 Code(s): E43 - UNSPECIFIED SEVERE PROTEIN-CALORIE MALNUTRITION Status: Chronic Priority: High Current Visit: Yes (3) Renal insufficiency SNOMED Code(s): 474916085, 862719662 Code(s): N28.9 - DISORDER OF KIDNEY AND URETER, UNSPECIFIED Status: Chronic Priority: High Current Visit: Yes (4) General weakness SNOMED Code(s): 43151384 Code(s): R53.1 - WEAKNESS Status: Chronic Priority: High Current Visit : Yes (5) Hx of lymphoma SNOMED Code(s): 208681992 Code(s): Z85.72 - PERSONAL HISTORY OF NON-HODGKIN LYMPHOMAS Status: Chronic Priority: Medium Current Visit: Yes (6) Dysphagia SNOMED Code(s): 07151875, 216995242 Code(s): R13.10 - DYSPHAGIA, UNSPECIFIED Status: Acute Priority: Medium Current Visit: Yes Qualifiers: Dysphagia type: esophageal phase Qualified Code(s): R13.10 - Dysphagia, unspecified - My Orders Last 24 Hours: My Active Orders 02/10/19 16:25 Bedrest Bedside Commode [RC] ASDIRECTED VTE/DVT Education [RC] PER UNIT ROUTINE Vital Signs [RC] Q8H Consult to Hospice [CONS] Routine VTE Mechanical Contraindications [AST] Per Unit Routine Resuscitation Status Routine 02/10/19 16:26 Antiembolic Hose [OM.PC] Per Unit Routine 02/10/19 16:27 Antiembolic Devices [RC] PER UNIT ROUTINE 02/10/19 17:25 PREALBUMIN [REF] Routine
[2019-02-11] MEDS ORDERED: Acetaminophen 650 MG Supp RECTAL PRN (10:12)
[2019-02-11] MEDS ORDERED: Acetaminophen 325 MG Tab PO PRN (10:12)
[2019-02-11] MEDS ORDERED: Ondansetron 4 MG Tab.DIS PO PRN (10:12)
--- NOTE | 2019-02-12 08:12 | PCM.DCSUM1 ---
<Enid Souza - Last Filed: 02/12/19 09:18> Discharge Summary - Hospital Course Free Text/Narrative:: Admission Date: 02/10/19 Discharge Date: 02/12/19 Admission Diagnosis: 1. Dehydration 2. 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 Generalized weakness 4. INDIA Discharge Diagnosis: 1. Dehydration 2. 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 Generalized weakness 4. INDIA 5. Hospice Procedures: None Consults: Hospice Hospital Course: The patient is a 88 year old female with past medical history of Hodgkin's lymphoma and radiation esophagitis who presented to the ER with weakness and inability to swallow. She had been eating/drinking very little due to pain associated with swallowing. Workup found a [place] and hypokalemia. CXR showed no acute cardiopulmonary process. UA was positive for protein but no infection. She was admitted to the medical surgical floor. She was treated with IVF and her kidney function slightly improved. PT/OT was ordered but the patient refused. On the second day of discharge, she lost IV access. At that point a discussion was had with the patient and the family and they decided no more pokes, no more labs, no PICC line, and no feeding tube. At this point hospice consult was placed. The family had a discussion with hospice and it was decided that the patient would go to [facility] on hospice cares. The case was discussed with Dr. Matt who agreed to follow the patient at [facility]. Disposition: [facility] Discharge Condition: vitals stable, not tolerating oral diet very well, going on hospice care Discharge Instructions: diet as tolerated, activity as tolerated. Symptoms to report to provider include fever/chills, chest pain, shortness of breath, abdominal pain, erythema, or discharge/drainage. Discharge Medications: None- Hospice will do meds at [facility]. Follow-up: Dr. Matt will follow in [facility] - Discharge Data Discharge Date: 02/12/19 Discharge Disposition: DC/Tfer to SNF 03 Condition: Fair - Patient Summary/Data Consults: Consultations 02/10/19 16:25 Consult to Hospice [CONS] Routine - Discharge Plan Home Medications: Home Meds . [No Known Home Meds] 02/10/19 [History] Referrals: Priyank Matt MD [Physician] - - Discharge Summary/Plan Comment DC Time >30 min.: No - Patient Data Vitals - Most Recent: Last Vital Signs Temp 96.8 F 02/12/19 04:00 Pulse 59 L 02/12/19 04:00 Resp 18 02/12/19 04:00 BP 100/62 02/12/19 04:00 Pulse Ox 97 02/12/19 04:00 Weight - Most Recent: 31.751 kg I&O - Last 24 hours: Intake & Output 02/11/19 02/12/19 02/12/19 22:59 06:59 14:59 Intake Total 200 50 Output Total 350 300 Balance -150 -250 Lab Results - Last 24 hrs: Laboratory Results - last 24 hr 02/11/19 02/11/19 Range/Units 06:27 08:07 POC Glucose 66 (60-110) mg/dL Prealbumin 8.0 L (17.0-34.0) mg/dL Med Orders - Current: Current Medications Acetaminophen (Tylenol) 650 mg RECTAL Q4H PRN PRN Reason: Pain Acetaminophen (Tylenol) 650 mg PO Q4H PRN PRN Reason: Pain Ondansetron HCl (Zofran Odt) 4 mg PO Q4H PRN PRN Reason: Nausea/Vomiting Discontinued Medications Sodium Chloride (Normal Saline) 500 mls @ 999 mls/hr IV STAT [facility] Last Admin: 02/10/19 12:29 Dose: 999 mls/hr Sodium Chloride (Normal Saline) 1,000 mls @ 125 mls/hr IV STAT [facility] Last Admin: 02/10/19 14:25 Dose: 125 mls/hr Sodium Chloride (Normal Saline) 1,000 mls @ 100 mls/hr IV ASDIRECTED [facility] Last Admin: 02/11/19 03:09 Dose: 100 mls/hr Morphine Sulfate (Morphine) 1 mg IVPUSH Q2H PRN PRN Reason: Pain (severe 7-10) Stop: 02/11/19 16:27 Ondansetron HCl (Zofran) 4 mg IVPUSH ONETIME ONE Stop: 02/10/19 12:07 Last Admin: 02/10/19 12:29 Dose: 4 mg Ondansetron HCl (Zofran) 4 mg IVPUSH Q6H [facility] Last Admin: 02/11/19 10:13 Dose: Not Given *Q Meaningful Use (DIS) - VTE *Q VTE Mechanical Contraindications *Q: At Risk for Falls <Ben Rosario - Last Filed: 02/12/19 17:09> Discharge Summary - Hospital Course Free Text/Narrative:: I have examined the patient independently of Enid Souza MD, resident. I have discussed the case with her. I have reviewed and agree with the plan of care as outlined by her. Please see orders. Palliative care measures instituted. - Discharge Diagnosis/Problem(s) (1) Dehydration SNOMED Code(s): 15213624 ICD Code: E86.0 - DEHYDRATION Status: Acute Priority: High (2) Severe protein-calorie malnutrition SNOMED Code(s): 452263793, 360733541, 610872437 ICD Code: E43 - UNSPECIFIED SEVERE PROTEIN-CALORIE MALNUTRITION Status: Chronic Priority: High (3) Renal insufficiency SNOMED Code(s): 152879164, 846150872 ICD Code: N28.9 - DISORDER OF KIDNEY AND URETER, UNSPECIFIED Status: Chronic Priority: High (4) General weakness SNOMED Code(s): 72118597 ICD Code: R53.1 - WEAKNESS Status: Chronic Priority: High (5) Hx of lymphoma SNOMED Code(s): 891979057 ICD Code: Z85.72 - PERSONAL HISTORY OF NON-HODGKIN LYMPHOMAS Status: Chronic Priority: Medium (6) Dysphagia SNOMED Code(s): 56358234, 190852477 ICD Code: R13.10 - DYSPHAGIA, UNSPECIFIED Status: Acute Priority: Medium Qualifiers: Dysphagia type: esophageal phase Qualified Code(s): R13.10 - Dysphagia, unspecified - Patient Summary/Data Consults: Consultations 02/10/19 16:25 Consult to Hospice [CONS] Routine - Patient Data Vitals - Most Recent: Last Vital Signs Temp 36.7 C 02/12/19 09:31 Pulse 58 L 02/12/19 09:31 Resp 12 02/12/19 09:31 BP 104/57 L 02/12/19 09:31 Pulse Ox 92 L 02/12/19 09:31 I&O - Last 24 hours: Intake & Output 02/12/19 02/12/19 02/12/19 06:59 14:59 22:59 Intake Total 50 Output Total 300 Balance -250 Lab Results - Last 24 hrs: Laboratory Results - last 24 hr 02/11/19 Range/Units 06:27 Prealbumin 8.0 L (17.0-34.0) mg/dL Med Orders - Current: Current Medications Discontinued Medications Acetaminophen (Tylenol) 650 mg RECTAL Q4H PRN PRN Reason: Pain Acetaminophen (Tylenol) 650 mg PO Q4H PRN PRN Reason: Pain Sodium Chloride (Normal Saline) 500 mls @ 999 mls/hr IV STAT [facility] Last Admin: 02/10/19 12:29 Dose: 999 mls/hr Sodium Chloride (Normal Saline) 1,000 mls @ 125 mls/hr IV STAT [facility] Last Admin: 02/10/19 14:25 Dose: 125 mls/hr Sodium Chloride (Normal Saline) 1,000 mls @ 100 mls/hr IV ASDIRECTED [facility] Last Admin: 02/11/19 03:09 Dose: 100 mls/hr Morphine Sulfate (Morphine) 1 mg IVPUSH Q2H PRN PRN Reason: Pain (severe 7-10) Stop: 02/11/19 16:27 Ondansetron HCl (Zofran) 4 mg IVPUSH ONETIME ONE Stop: 02/10/19 12:07 Last Admin: 02/10/19 12:29 Dose: 4 mg Ondansetron HCl (Zofran) 4 mg IVPUSH Q6H [facility] Last Admin: 02/11/19 10:13 Dose: Not Given Ondansetron HCl (Zofran Odt) 4 mg PO Q4H PRN PRN Reason: Nausea/Vomiting
[2019-02-12 09:32] VITALS: BP 104/57
== END 2019-02-12 14:30 ==
LOC: MW.ED 11:43 → MW.MS 15:35
PROVIDERS: ADMIT Internal Medicine; ATTEND Internal Medicine
DX: R13.10 Dysphagia, unspecified (principal); E86.0 Dehydration; R53.1 Weakness; E43 Unspecified severe protein-calorie malnutrition; E87.6 Hypokalemia; N28.9 Disorder of kidney and ureter, unspecified; Z51.5 Encounter for palliative care; E78.00 Pure hypercholesterolemia, unspecified; E05.90 Thyrotoxicosis, unspecified without thyrotoxic crisis or storm; Z85.72 Personal history of non-Hodgkin lymphomas; Z92.3 Personal history of irradiation; Z88.1 Allergy status to other antibiotic agents; Z88.0 Allergy status to penicillin; Z88.2 Allergy status to sulfonamides; Z91.041 Radiographic dye allergy status; Z91.048 Other nonmedicinal substance allergy status
CPT/HCPCS: 36415; 71045; 80053; 81001; 82550; 82962; 83735; 84134; 84484; 85025; 93005; 96374; 99285; J2405; J7040; 96361; 96376; G0378